=== PATIENT | female | born 1965 | race Caucasian/White ===

== ENCOUNTER 2017-11-08 10:34 | Emergency (ER) | payer OTHER, SELFPAY ==
--- NOTE | 2017-11-08 10:41 | ED.CHESTPAIN ---
HPI - Chest Pain General Chief Complaint: Chest Pain Stated Complaint: SOB/Chest pain Time Seen by Provider: 11/08/17 10:38 Source: patient Mode of arrival: ambulatory Limitations: no limitations History of Present Illness HPI narrative: 52-year-old female here for evaluation of left-sided chest pain. She states she has been having it off and on for the past 2 weeks. She states that she is currently having pain and it started at approximately 0930 this morning when she was at her psychiatrist's office. She states that her psychiatrist asked her to follow up with her primary doctor and her primary doctor asked her to come to the emergency department. She also describes some occasional shortness of breath. She states that the pain is on the left side of her chest. Does have some aching in her back and down her left arm. She states that the pain does not get worse with a deep breath however does get worse with palpation. Does not get worse with movement of her left arm. Had a father who had congestive heart failure and atrial fibrillation and when he was in his 70s. No other immediate family history of early cardiac disease. Related Data Home Medications Medication Instructions Recorded Confirmed Tylenol Extra Strength 2 tabs PO PRN #0 03/21/12 11/08/17 cholecalciferol (vitamin D3) 1,000 unit PO QDAY #0 03/21/12 11/08/17 [Vitamin D3] multivitamin 1 tab PO DAILY #0 03/21/12 11/08/17 fluticasone [Flonase Allergy 1 spray INTRANASAL QDAY #1 bot 01/20/16 11/08/17 Relief] turmeric root extract 1 tab PO DAILY #0 02/24/16 11/08/17 conjugated estrogens [Premarin] 1 applic VAGINAL SEE INSTRUCTIONS 11/08/17 11/08/17 duloxetine 90 mg PO QDAY 11/08/17 11/08/17 armani [id number]-adtklcnk-cauvamihy ac 1 cap PO TID 11/08/17 11/08/17 [Marathon Oil] methylphenidate HCl [Concerta] 54 mg PO QAM 11/08/17 11/08/17 naproxen 500 mg PO BID PRN 11/08/17 11/08/17 propranolol 20 mg PO BID 11/08/17 11/08/17 Previous Rx's Medication Instructions Recorded clonidine HCl 0.2 mg PO HS #60 tab 05/01/17 trazodone 0 mg PO HSP PRN #60 tab 08/21/16 gabapentin 200 mg PO TID #180 cap 09/02/17 Allergies Allergy/AdvReac Type Severity Reaction Status Date / Time topiramate [From Topamax] Allergy Intermediate Swelling Verified 11/08/17 11:23 of the Eye codeine Allergy Unknown NAUSEA/VOMI Verified 11/08/17 11:23 TING morphine AdvReac Severe NAUSEA/SEVERE Verified 11/08/17 11:23 VOMITING ibuprofen AdvReac Unknown EYE Verified 11/08/17 11:23 SWELLING Review of Systems Constitutional Denies fatigue, Denies fever(s), Denies headache(s) and Denies snoring Eyes Denies itchy eyes ENT Ears, Nose, Mouth, and Throat: Denies dizziness and Denies headache(s) Cardiovascular Reports chest pain, Denies chest pain with activity, Denies syncope, Denies edema, Denies leg edema, Denies palpitations, Reports dyspnea and Denies slow heart rate Respiratory Denies cough, Reports dyspnea, Denies snoring, Denies stridor and Denies wheezing Gastrointestinal Gastrointestinal: Denies abdominal pain, Denies constipation, Denies diarrhea, Reports nausea and Denies vomiting Genitourinary Denies dysuria and Denies flank pain Musculoskeletal Denies myalgias and Denies arthralgias Integumentary/Breasts Denies lesions and Denies rash Neurologic Denies dizziness, Denies syncope and Denies headache(s) Endocrine Denies fatigue and Denies palpitations Hematologic/Lymphatic Denies easy bleeding and Denies easy bruising Allergic/Immunologic Denies urticaria, Denies itchy eyes and Denies wheezing [facility] Medical History Fatty liver (Acute) Surgical History Status post hysterectomy Status post knee surgery Family History Child Age: 26 Asthma Mental health problem Father Heart disease Hypertension High cholesterol Mental health problem Grandmother Hypertension Mental health problem Mother Age: 75 Stroke Mental health problem Grandfather Hypertension High cholesterol Grandmother Mental health problem Sister Age: 48 Mental health problem Sister Age: 45 Hypertension High cholesterol Mental health problem Social History Smoking Status: Never smoker Comment: Reviewed patient's past family surgical medical and social history Exam Initial Vital Signs Initial Vital Signs: Vital Signs Temperature 98.5 F 11/08/17 10:56 Pulse Rate 82 11/08/17 10:56 Respiratory Rate 20 11/08/17 10:56 Blood Pressure 135/77 H 11/08/17 10:56 Pulse Oximetry 98 11/08/17 10:56 Const General: cooperative, healthy appearing, comfortable, well developed, well groomed and No acute distress Nutritional Appearance: overweight Orientation: alert, awake and oriented x3 Chest Other: Reproducible symptoms with palpation left-sided anterior chest wall Resp Effort & Inspection: normal respiratory effort Auscultation: clear to auscultation bilaterally Cardio Rate: regular rate Rhythm: regular rhythm Heart Sounds: no murmurs Pulses: radial pulses present GI Inspection: non-distended Palpation: soft, No firm and No tender Skin Lesions: no lesions Rashes: no rashes Neuro General: alert, awake and oriented x3 Cognition: normal cognition Speech: speech normal Motor: muscle tone normal throughout Sensory Exam: no sensory deficits noted Extrem General: normal to inspection and capillary refill normal Psych Appearance: grossly normal and well kempt Scores HEART Score Heart Score history: Slightly Suspicious Heart Score EKG: Non-Specific repolarization disturbance Heart Score Age: 45-64 years old Heart Score risk factors: 1-2 risk factors Heart Score troponin: < or = to normal limit Heart Score Total: 3 Course Orders Ordered: ED Orders 11/08/17 10:42 XR chest 1V Stat EKG-12 Lead Stat 11/08/17 11:00 B Type Natriuretic Peptide Stat Complete Blood Count AUTO DIFF Stat Comprehensive Metabolic Panel Stat Magnesium Stat Partial Thromboplastin Time Stat Phosphorous Stat Prothrombin Time INR Stat Troponin I Stat 11/08/17 14:08 Troponin I Stat Discontinued Medications Aspirin (Aspirin Chew) 324 mg PO NOW ONE Stop: 11/08/17 10:53 Last Admin: 11/08/17 11:03 Dose: 324 mg Vital Signs - 8 hr 11/08/17 10:56 11/08/17 11:19 11/08/17 12:23 Temperature 98.5 F Pulse Rate 82 80 76 Respiratory Rate 20 18 16 Blood Pressure 135/77 H Blood Pressure [Left Arm] 119/75 106/71 Pulse Oximetry 98 100 97 11/08/17 13:22 11/08/17 14:15 Temperature Pulse Rate 77 82 Respiratory Rate 15 20 Blood Pressure Blood Pressure [Left Arm] 126/78 H 103/71 Pulse Oximetry 100 MDM - Chest Pain Lab Data Attestation: I reviewed the patient's lab results. Result diagrams: 11/08/17 11:00 11/08/17 11:00 Lab Results 11/08/17 11/08/17 11/08/17 Range/Units 11:00 11:00 11:00 WBC 5.0 (4.5-11.0) X10^3/uL RBC 5.07 (4.0-5.2) X10^6/uL Hgb 15.4 (12.0-16.0) g/dL Hct 45.5 (36-46) % MCV 89.8 (80-100) fL MCH 30.3 (26-34) PG MCHC 33.8 (30-36) % RDW 13.2 (11.6-14.8) % Plt Count 198 (150-400) X10^3/uL Neut % (Auto) 57.6 (50-75) % Lymph % (Auto) 29.5 (25-40) % Mayes % (Auto) 8.1 (3-14) % Eos % (Auto) 3.5 (2-4) % Baso % (Auto) 1.3 (0-2) % Neut # (Auto) 2900 L (4542-0624) /uL PT 10.8 (10.1-12.7) SECONDS INR 1.0 (0.9-1.3) APTT 27 (26.4-36.2) SECONDS Sodium 141 (137-145) mmol/L Potassium 4.0 (3.4-5.1) mmol/L Chloride 105 (98-107) mmol/L Carbon Dioxide 28 (22-32) mmol/L BUN 14 (7-17) mg/dL Creatinine 0.70 (0.52-1.04) mg/dL Estimated GFR > 60.0 (>60) mL/min BUN/Creatinine Ratio 20.0 (6-22) Glucose 114 H (70-100) mg/dL Calcium 9.3 (8.4-10.2) mg/dL Phosphorus 2.4 L (2.5-4.5) mg/dL Magnesium 2.0 (1.6-2.3) mg/dL Total Bilirubin 0.5 (0.2-1.3) mg/dL AST 24 (14-36) IU/L ALT 28 (9-52) IU/L Alkaline Phosphatase 91 (38-126) U/L Troponin I < 0.012 (0.01-0.034) ng/mL B-Natriuretic Peptide (<100) Total Protein 6.8 (6.3-8.2) g/dL Albumin 4.0 (3.5-5.0) g/dL Globulin 2.8 (1.7-4.1) g/dL Albumin/Globulin Ratio 1.4 (1.0-2.8) 11/08/17 11/08/17 Range/Units 11:00 14:08 WBC (4.5-11.0) X10^3/uL RBC (4.0-5.2) X10^6/uL Hgb (12.0-16.0) g/dL Hct (36-46) % MCV (80-100) fL MCH (26-34) PG MCHC (30-36) % RDW (11.6-14.8) % Plt Count (150-400) X10^3/uL Neut % (Auto) (50-75) % Lymph % (Auto) (25-40) % Mayes % (Auto) (3-14) % Eos % (Auto) (2-4) % Baso % (Auto) (0-2) % Neut # (Auto) (6357-5573) /uL PT (10.1-12.7) SECONDS INR (0.9-1.3) APTT (26.4-36.2) SECONDS Sodium (137-145) mmol/L Potassium (3.4-5.1) mmol/L Chloride (98-107) mmol/L Carbon Dioxide (22-32) mmol/L BUN (7-17) mg/dL Creatinine (0.52-1.04) mg/dL Estimated GFR (>60) mL/min BUN/Creatinine Ratio (6-22) Glucose (70-100) mg/dL Calcium (8.4-10.2) mg/dL Phosphorus (2.5-4.5) mg/dL Magnesium (1.6-2.3) mg/dL Total Bilirubin (0.2-1.3) mg/dL AST (14-36) IU/L ALT (9-52) IU/L Alkaline Phosphatase (38-126) U/L Troponin I < 0.012 (0.01-0.034) ng/mL B-Natriuretic Peptide < 100.0 (<100) Total Protein (6.3-8.2) g/dL Albumin (3.5-5.0) g/dL Globulin (1.7-4.1) g/dL Albumin/Globulin Ratio (1.0-2.8) Imaging Data Chest x-ray: Radiologist's impression: PROCEDURE: XR CHEST 1V INDICATIONS: Chest pain shortness of breath TECHNIQUE: One view of the chest was acquired. COMPARISON: [facility], CT, PE STUDY (CTA CHEST), 11/27/2008, 15:17. [facility], CR, CHEST 1 VIEW, 11/27/2008, 13:59. FINDINGS: Surgical changes and devices: None. Lungs and pleura: No pleural effusions or pneumothorax. Lungs are clear. Mediastinum: Mediastinal contours appear normal. Heart size is normal. Bones and chest wall: No suspicious bony lesions. Age-appropriate bony degenerative changes are seen. Overlying soft tissues appear unremarkable. IMPRESSION: Portable chest within normal limits. Dictated by: Jayden Genao M.D. on 11/08/2017 at 10:19 Approved by: Jayden Genao M.D. on 11/08/2017 at 10:31 ECG Data Attestation: I personally reviewed and interpreted this ECG as follows: Prior ECG tracings: not available for review Interpretation: Sinus rhythm Ventricular rate 81 Normal axis Normal intervals Normal QRS Normal QTC Nonspecific ST T wave changes MDM Narrative Medical decision making narrative: 52-year-old female with reproducible left-sided chest pain. While she was getting her IV placed she had an episode of tachycardia pair on the monitor. It did not appear that the patient was moving at the time. Patient was asymptomatic during the event. The event spontaneously resolved. Initial troponin was negative. Heart score is 3. I discussed the case with Waqar who asked me to talk with our supervisor screen making before we proceeded with any sort of transfer for the unexplained tachycardia event. I did discuss the case with with cardiology at [facility] who evaluated the rhythm strip as stated that the QRS complex did March out and that the other wide complex findings were artifact. This does fit the patient's clinical scenario at the time seeing as how she was asymptomatic. Patient was given an aspirin here in the ER. Repeat troponin greater than 6 hr after the onset of her symptoms and greater than 3 hr after the 1st troponin was negative. Given her low heart score, and the reproducibility of the pain with palpation, the 2-troponins and the nonspecific EKG feel that the patient can follow up as a outpatient. I did discuss this with the patient and family at bedside. They will contact her primary doctor for follow-up. She was given return precautions. They expressed understanding and agreement with plan Discharge Plan Departure Patient Disposition: Home, Self-Care Clinical Impression: Atypical chest pain Instructions: DI for Atypical Chest Pain Activity Restrictions/Additional Instructions: Recommend that you continue with all of your medications as directed. Contact your primary care doctor to discuss the indications for follow on testing to include a stress test. Return to the emergency department for any new or worsening symptoms. Prescriptions: No Action cholecalciferol (vitamin D3) [Vitamin D3] 1,000 unit Tablet 1,000 unit PO QDAY Qty: 0 RF: 0 multivitamin Tablet 1 tab PO DAILY Qty: 0 RF: 0 Tylenol Extra Strength 2 tabs PO PRN Qty: 0 RF: 0 fluticasone [Flonase Allergy Relief] 9.9 ML spray,suspension 1 spray Intranasal QDAY Qty: 1 RF: 0 turmeric root extract 1 tab PO DAILY Qty: 0 RF: 0 clonidine HCl 0.1 MG tablet 0.2 mg PO HS Qty: 60 RF: 0 trazodone 50 MG tablet PO HSP PRNQty: 60 RF: 2 gabapentin 100 mg capsule 200 mg PO TID Qty: 180 RF: 1 methylphenidate HCl [Concerta] 54 mg Tablet Extended Release 24hr 54 mg PO QAM RF: 0 duloxetine 30 MG capsule,delayed release(DR/EC) 90 mg PO QDAY RF: 0 propranolol 20 mg Tablet 20 mg PO BID RF: 0 naproxen 500 MG tablet 500 mg PO BID PRN (Reason: Inflammation) RF: 0 armani [id number] ac [Marathon Oil] 1,000 mg Capsule 1 cap PO TID RF: 0 conjugated estrogens [Premarin] 0.625 MG/GM cream 1 applic Vaginal SEE INSTRUCTIONS RF: 0
[2017-11-08 10:56] VITALS: BP 135/77; PULSE 82; RESP 20; TEMP 36.9; O2SAT 98; BMI 35.9
--- NOTE | 2017-11-08 10:57 | ED_ITS ---
HPI - Chest Pain General Chief Complaint: Chest Pain Stated Complaint: SOB/Chest pain Time Seen by Provider: 11/08/17 10:38 Source: patient Mode of arrival: ambulatory Limitations: no limitations History of Present Illness HPI narrative: 52-year-old female here for evaluation of left-sided chest pain. She states she has been having it off and on for the past 2 weeks. She states that she is currently having pain and it started at approximately 0930 this morning when she was at her psychiatrist's office. She states that her psychiatrist asked her to follow up with her primary doctor and her primary doctor asked her to come to the emergency department. She also describes some occasional shortness of breath. She states that the pain is on the left side of her chest. Does have some aching in her back and down her left arm. She states that the pain does not get worse with a deep breath however does get worse with palpation. Does not get worse with movement of her left arm. Had a father who had congestive heart failure and atrial fibrillation and when he was in his 70s. No other immediate family history of early cardiac disease. Related Data Home Medications Medication Instructions Recorded Confirmed Tylenol Extra Strength 2 tabs PO PRN #0 03/21/12 11/08/17 cholecalciferol (vitamin D3) 1,000 unit PO QDAY #0 03/21/12 11/08/17 [Vitamin D3] multivitamin 1 tab PO DAILY #0 03/21/12 11/08/17 fluticasone [Flonase Allergy 1 spray INTRANASAL QDAY #1 bot 01/20/16 11/08/17 Relief] turmeric root extract 1 tab PO DAILY #0 02/24/16 11/08/17 conjugated estrogens [Premarin] 1 applic VAGINAL SEE INSTRUCTIONS 11/08/1711/08 duloxetine 90 mg PO QDAY 11/08/17 11/08/17 armani agdg-zayccxlk-viledgmwo ac 1 cap PO TID 11/08/17 11/08/17 [[place] Oil] methylphenidate HCl [Concerta] 54 mg PO QAM 11/08/17 11/08/17 naproxen 500 mg PO BID PRN 11/08/17 11/08/17 propranolol 20 mg PO BID 11/08/17 11/08/17 Previous Rx's Medication Instructions Recorded clonidine HCl 0.2 mg PO HS #60 tab 05/01/17 trazodone 0 mg PO HSP PRN #60 tab 08/21/16 gabapentin 200 mg PO TID #180 cap 09/02/17 Allergies Allergy/AdvReac Type Severity Reaction Status Date / Time topiramate [From Topamax] Allergy Intermediate Swelling Verified 11/08/17 11:23 of the Eye codeine Allergy Unknown NAUSEA/VOMI Verified 11/08/17 11:23 TING morphine AdvReac Severe NAUSEA/SEVERE Verified 11/08/17 11:23 VOMITING ibuprofen AdvReac Unknown EYE Verified 11/08/17 11:23 SWELLING Review of Systems Constitutional Denies fatigue, Denies fever(s), Denies headache(s) and Denies snoring Eyes Denies itchy eyes ENT Ears, Nose, Mouth, and Throat: Denies dizziness and Denies headache(s) Cardiovascular Reports chest pain, Denies chest pain with activity, Denies syncope, Denies edema, Denies leg edema, Denies palpitations, Reports dyspnea and Denies slow heart rate Respiratory Denies cough, Reports dyspnea, Denies snoring, Denies stridor and Denies wheezing Gastrointestinal Gastrointestinal: Denies abdominal pain, Denies constipation, Denies diarrhea, Reports nausea and Denies vomiting Genitourinary Denies dysuria and Denies flank pain Musculoskeletal Denies myalgias and Denies arthralgias Integumentary/Breasts Denies lesions and Denies rash Neurologic Denies dizziness, Denies syncope and Denies headache(s) Endocrine Denies fatigue and Denies palpitations Hematologic/Lymphatic Denies easy bleeding and Denies easy bruising Allergic/Immunologic Denies urticaria, Denies itchy eyes and Denies wheezing [facility] Medical History Fatty liver (Acute) Surgical History Status post hysterectomy Status post knee surgery Family History Child Age: 26 Asthma Mental health problem Father Heart disease Hypertension High cholesterol Mental health problem Grandmother Hypertension Mental health problem Mother Age: 75 Stroke Mental health problem Grandfather Hypertension High cholesterol Grandmother Mental health problem Sister Age: 48 Mental health problem Sister Age: 45 Hypertension High cholesterol Mental health problem Social History Smoking Status: Never smoker Comment: Reviewed patient's past family surgical medical and social history Exam Initial Vital Signs Initial Vital Signs: Vital Signs Temperature 98.5 F 11/08/17 10:56 Pulse Rate 82 11/08/17 10:56 Respiratory Rate 20 11/08/17 10:56 Blood Pressure 135/77 H 11/08/17 10:56 Pulse Oximetry 98 11/08/17 10:56 Const General: cooperative, healthy appearing, comfortable, well developed, well groomed and No acute distress Nutritional Appearance: overweight Orientation: alert, awake and oriented x3 Chest Other: Reproducible symptoms with palpation left-sided anterior chest wall Resp Effort & Inspection: normal respiratory effort Auscultation: clear to auscultation bilaterally Cardio Rate: regular rate Rhythm: regular rhythm Heart Sounds: no murmurs Pulses: radial pulses present GI Inspection: non-distended Palpation: soft, No firm and No tender Skin Lesions: no lesions Rashes: no rashes Neuro General: alert, awake and oriented x3 Cognition: normal cognition Speech: speech normal Motor: muscle tone normal throughout Sensory Exam: no sensory deficits noted Extrem General: normal to inspection and capillary refill normal Psych Appearance: grossly normal and well kempt Scores HEART Score Heart Score history: Slightly Suspicious Heart Score EKG: Non-Specific repolarization disturbance Heart Score Age: 45-64 years old Heart Score risk factors: 1-2 risk factors Heart Score troponin: < or = to normal limit Heart Score Total: 3 Course Orders Ordered: ED Orders 11/08/17 10:42 XR chest 1V Stat EKG-12 Lead Stat 11/08/17 11:00 B Type Natriuretic Peptide Stat Complete Blood Count AUTO DIFF Stat Comprehensive Metabolic Panel Stat Magnesium Stat Partial Thromboplastin Time Stat Phosphorous Stat Prothrombin Time INR Stat Troponin I Stat 11/08/17 14:08 Troponin I Stat Discontinued Medications Aspirin (Aspirin Chew) 324 mg PO NOW ONE Stop: 11/08/17 10:53 Last Admin: 11/08/17 11:03 Dose: 324 mg Vital Signs - 8 hr 11/08/17 10:56 11/08/17 11:19 11/08/17 12:23 Temperature 98.5 F Pulse Rate 82 80 76 Respiratory Rate 20 18 16 Blood Pressure 135/77 H Blood Pressure [Left Arm] 119/75 106/71 Pulse Oximetry 98 100 97 11/08/17 13:22 11/08/17 14:15 Temperature Pulse Rate 77 82 Respiratory Rate 15 20 Blood Pressure Blood Pressure [Left Arm] 126/78 H 103/71 Pulse Oximetry 100 MDM - Chest Pain Lab Data Attestation: I reviewed the patient's lab results. Result diagrams: 11/08/17 11:00 11/08/17 11:00 Lab Results 11/08/17 11/08/17 11/08/17 Range/Units 11:00 11:00 11:00 WBC 5.0 (4.5-11.0) X10^3/uL RBC 5.07 (4.0-5.2) X10^6/uL Hgb 15.4 (12.0-16.0) g/dL Hct 45.5 (36-46) % MCV 89.8 (80-100) fL MCH 30.3 (26-34) PG MCHC 33.8 (30-36) % RDW 13.2 (11.6-14.8) % Plt Count 198 (150-400) X10^3/uL Neut % (Auto) 57.6 (50-75) % Lymph % (Auto) 29.5 (25-40) % Mitchell % (Auto) 8.1 (3-14) % Eos % (Auto) 3.5 (2-4) % Baso % (Auto) 1.3 (0-2) % Neut # (Auto) 2900 L (5793-8317) /uL PT 10.8 (10.1-12.7) SECONDS INR 1.0 (0.9-1.3) APTT 27 (26.4-36.2) SECONDS Sodium 141 (137-145) mmol/L Potassium 4.0 (3.4-5.1) mmol/L Chloride 105 (98-107) mmol/L Carbon Dioxide 28 (22-32) mmol/L BUN 14 (7-17) mg/dL Creatinine 0.70 (0.52-1.04) mg/dL Estimated GFR > 60.0 (>60) mL/min BUN/Creatinine Ratio 20.0 (6-22) Glucose 114 H (70-100) mg/dL Calcium 9.3 (8.4-10.2) mg/dL Phosphorus 2.4 L (2.5-4.5) mg/dL Magnesium 2.0 (1.6-2.3) mg/dL Total Bilirubin 0.5 (0.2-1.3) mg/dL AST 24 (14-36) IU/L ALT 28 (9-52) IU/L Alkaline Phosphatase 91 (38-126) U/L Troponin I < 0.012 (0.01-0.034) ng/mL B-Natriuretic Peptide (<100) Total Protein 6.8 (6.3-8.2) g/dL Albumin 4.0 (3.5-5.0) g/dL Globulin 2.8 (1.7-4.1) g/dL Albumin/Globulin Ratio 1.4 (1.0-2.8) 11/08/17 11/08/17 Range/Units 11:00 14:08 WBC (4.5-11.0) X10^3/uL RBC (4.0-5.2) X10^6/uL Hgb (12.0-16.0) g/dL Hct (36-46) % MCV (80-100) fL MCH (26-34) PG MCHC (30-36) % RDW (11.6-14.8) % Plt Count (150-400) X10^3/uL Neut % (Auto) (50-75) % Lymph % (Auto) (25-40) % Mitchell % (Auto) (3-14) % Eos % (Auto) (2-4) % Baso % (Auto) (0-2) % Neut # (Auto) (3556-0027) /uL PT (10.1-12.7) SECONDS INR (0.9-1.3) APTT (26.4-36.2) SECONDS Sodium (137-145) mmol/L Potassium (3.4-5.1) mmol/L Chloride (98-107) mmol/L Carbon Dioxide (22-32) mmol/L BUN (7-17) mg/dL Creatinine (0.52-1.04) mg/dL Estimated GFR (>60) mL/min BUN/Creatinine Ratio (6-22) Glucose (70-100) mg/dL Calcium (8.4-10.2) mg/dL Phosphorus (2.5-4.5) mg/dL Magnesium (1.6-2.3) mg/dL Total Bilirubin (0.2-1.3) mg/dL AST (14-36) IU/L ALT (9-52) IU/L Alkaline Phosphatase (38-126) U/L Troponin I < 0.012 (0.01-0.034) ng/mL B-Natriuretic Peptide < 100.0 (<100) Total Protein (6.3-8.2) g/dL Albumin (3.5-5.0) g/dL Globulin (1.7-4.1) g/dL Albumin/Globulin Ratio (1.0-2.8) Imaging Data Chest x-ray: Radiologist's impression: PROCEDURE: XR CHEST 1V INDICATIONS: Chest pain shortness of breath TECHNIQUE: One view of the chest was acquired. COMPARISON: [facility], CT, PE STUDY (CTA CHEST), 11/27/2008, 15:17. [facility], CR, CHEST 1 VIEW, 11/27/2008, 13:59. FINDINGS: Surgical changes and devices: None. Lungs and pleura: No pleural effusions or pneumothorax. Lungs are clear. Mediastinum: Mediastinal contours appear normal. Heart size is normal. Bones and chest wall: No suspicious bony lesions. Age-appropriate bony degenerative changes are seen. Overlying soft tissues appear unremarkable. IMPRESSION: Portable chest within normal limits. Dictated by: Jayden Genao M.D. on 11/08/2017 at 10:19 Approved by: Jayden Genao M.D. on 11/08/2017 at 10:31 ECG Data Attestation: I personally reviewed and interpreted this ECG as follows: Prior ECG tracings: not available for review Interpretation: Sinus rhythm Ventricular rate 81 Normal axis Normal intervals Normal QRS Normal QTC Nonspecific ST T wave changes MDM Narrative Medical decision making narrative: 52-year-old female with reproducible left- sided chest pain. While she was getting her IV placed she had an episode of tachycardia pair on the monitor. It did not appear that the patient was moving at the time. Patient was asymptomatic during the event. The event spontaneously resolved. Initial troponin was negative. Heart score is 3. I discussed the case with Waqar who asked me to talk with our stars analytical lead before we proceeded with any sort of transfer for the unexplained tachycardia event. I did discuss the case with with cardiology at [facility] who evaluated the rhythm strip as stated that the QRS complex did March out and that the other wide complex findings were artifact. This does fit the patient's clinical scenario at the time seeing as how she was asymptomatic. Patient was given an aspirin here in the ER. Repeat troponin greater than 6 hr after the onset of her symptoms and greater than 3 hr after the 1st troponin was negative. Given her low heart score, and the reproducibility of the pain with palpation, the 2-troponins and the nonspecific EKG feel that the patient can follow up as a outpatient. I did discuss this with the patient and family at bedside. They will contact her primary doctor for follow-up. She was given return precautions. They expressed understanding and agreement with plan Discharge Plan Departure Patient Disposition: Home, Self-Care Clinical Impression: Atypical chest pain Instructions: DI for Atypical Chest Pain Activity Restrictions/Additional Instructions: Recommend that you continue with all of your medications as directed. Contact your primary care doctor to discuss the indications for follow on testing to include a stress test. Return to the emergency department for any new or worsening symptoms. Prescriptions: No Action cholecalciferol (vitamin D3) [Vitamin D3] 1,000 unit Tablet 1,000 unit PO QDAY Qty: 0 RF: 0 multivitamin Tablet 1 tab PO DAILY Qty: 0 RF: 0 Tylenol Extra Strength 2 tabs PO PRN Qty: 0 RF: 0 fluticasone [Flonase Allergy Relief] 9.9 ML spray,suspension 1 spray Intranasal QDAY Qty: 1 RF: 0 turmeric root extract 1 tab PO DAILY Qty: 0 RF: 0 clonidine HCl 0.1 MG tablet 0.2 mg PO HS Qty: 60 RF: 0 trazodone 50 MG tablet PO HSP PRNQty: 60 RF: 2 gabapentin 100 mg capsule 200 mg PO TID Qty: 180 RF: 1 methylphenidate HCl [Concerta] 54 mg Tablet Extended Release 24hr 54 mg PO QAM RF: 0 duloxetine 30 MG capsule,delayed release(DR/EC) 90 mg PO QDAY RF: 0 propranolol 20 mg Tablet 20 mg PO BID RF: 0 naproxen 500 MG tablet 500 mg PO BID PRN (Reason: Inflammation) RF: 0 armani ixqc-znmdjhgt-krmlngbtt ac [[place] Oil] 1,000 mg Capsule 1 cap PO TID RF: 0 conjugated estrogens [Premarin] 0.625 MG/GM cream 1 applic Vaginal SEE INSTRUCTIONS RF: 0
[2017-11-08] MEDS: ASPIRIN 81 MG TAB 324 MG PO (11:03)
--- NOTE | 2017-11-08 11:12 | PC.NURSE ---
pt had run of VFib witnessed on monitor by RN and Dr Starr. Code cart at bedside. Pt alert and oriented at time of arrhythmia.
[2017-11-08 11:19] VITALS: BP 119/75; PULSE 80; RESP 18; O2SAT 100
[2017-11-08 11:26] LABS: Add Manual Diff / Slide Review NO; Basophils Percent Auto 1.3 % (0-2); Eosinophils Percent Auto 3.5 % (2-4); Hematocrit 45.5 % (36-46); Hemoglobin 15.4 g/dL (12.0-16.0); Lymphocytes Percent Auto 29.5 % (25-40); Mean Corpuscular HGB Conc 33.8 % (30-36); Mean Corpuscular Hemoglobin 30.3 PG (26-34); Mean Corpuscular Volume 89.8 fL (80-100); Monocytes Percent Auto 8.1 % (3-14); Neutrophils Absolute Auto 2900 /uL (3000-5900); Neutrophils Percent Auto 57.6 % (50-75); Platelet Count 198 X10^3/uL (150-400); Red Blood Cell Count 5.07 X10^6/uL (4.0-5.2); Red Cell Distribution Width 13.2 % (11.6-14.8)
[2017-11-08 11:35] LABS: Prothrombin Time 10.8 SECONDS (10.1-12.7)
[2017-11-08 11:37] LABS: PTT Partial Thromboplastin Tim 27 SECONDS (26.4-36.2)
[2017-11-08 11:40] LABS: Alanine Aminotransferase 28 IU/L (9-52); Albumin Globulin Ratio 1.4 (1.0-2.8); Alkaline Phosphatase 91 U/L (38-126); Aspartate Aminotransferase 24 IU/L (14-36); Bilirubin Total 0.5 mg/dL (0.2-1.3); Blood Urea Nitrogen 14 mg/dL (7-17); Calcium 9.3 mg/dL (8.4-10.2); Carbon Dioxide 28 mmol/L (22-32); Chloride 105 mmol/L (98-107); Estimated Glomerular Filt Rate > 60.0 mL/min (>60); Globulin 2.8 g/dL (1.7-4.1); Glucose 114 mg/dL (70-100); HEMOLYSIS < 15 (0-50); Phosphorous 2.4 mg/dL (2.5-4.5); Sodium 141 mmol/L (137-145); Total Protein 6.8 g/dL (6.3-8.2)
[2017-11-08 11:53] LABS: Troponin I < 0.012 ng/mL (0.01-0.034)
[2017-11-08 12:01] LABS: B Type Natriuretic Peptide < 100.0 (<100)
[2017-11-08 12:23] VITALS: BP 106/71; PULSE 76; RESP 16; O2SAT 97
[2017-11-08 13:22] VITALS: BP 126/78; PULSE 77; RESP 15; O2SAT 100
[2017-11-08 14:15] VITALS: BP 103/71; PULSE 82; RESP 20
[2017-11-08 14:43] LABS: Troponin I < 0.012 ng/mL (0.01-0.034)
[2017-11-08 15:07] VITALS: BP 120/77; PULSE 66; RESP 17; O2SAT 99
== END 2017-11-08 15:07 | disposition home or self-care (01) ==
PROVIDERS: Emergency Provider Emergency Medicine; PCP Internal Medicine
DX: R07.89 Other chest pain (principal)
CPT/HCPCS: 36415; 36591; 71045; 80053; 83735; 83880; 84100; 84484; 85025; 85610; 85730; 93005; 93010; 99283; 99285

== ENCOUNTER → 2017-11-30 13:48 | Outpatient (CLI) | payer OTHER, SELFPAY ==
--- NOTE | 2017-11-30 14:54 | PM.TREADMILL ---
Cardiac Stress Test Report Referral & Results Date Patient Seen: 11/30/17 Time Patient Seen: 14:54 Requesting provider: Domenica Tovar Indication: Chest pain Rest ECG: Unremarkable Procedure Note: Today following both written and verbal informed consent, the patient was exercised according to a standard [facility] protocol. The patient exercised for a total of 6 min 2 sec achieving a maximum heart rate of 180. Patient's maximum systolic blood pressure was 160. This was an estimated 7.0 MET's. There are no ST-T segment changes identified Normal heart rate and blood pressure response to exercise Functional aerobic impairment rated about 10% on the sedentary scale Impression: No evidence of ischemia. Patient did experience some chest and left arm discomfort but absolutely no changes on ECG Average exercise capacity Clinical correlation suggested Please note: Actual ECG tracings can be found in the PACS system.
== END ==
PROVIDERS: PCP Internal Medicine; Visit Provider Internal Medicine
DX: R07.89 Other chest pain (principal)
CPT/HCPCS: 93016; 93017; 93018

== ENCOUNTER → 2018-08-13 14:04 | Outpatient (CLI) | payer OTHER, SELFPAY ==
--- NOTE | 2018-08-13 14:13 | DI.RAD.S_ITS ---
PROCEDURE: XR CHEST 1V INDICATIONS: upper back pain TECHNIQUE: One view of the chest was acquired. COMPARISON: [facility], , XR CHEST 1V, 11/08/2017, 11:01. [facility], , CHEST 1 VIEW, 11/27/2008, 13:59. [facility], , CHEST 2 VIEW, 06/18/2007, 12:55. FINDINGS: Surgical changes and devices: None. Lungs and pleura: Lungs are clear. No pleural effusions or pneumothorax. Mediastinum: Mediastinal contours appear normal. Heart size is normal. Bones and chest wall: No suspicious bony lesions. Overlying soft tissues appear unremarkable. IMPRESSION: No acute cardiopulmonary disease. Dictated by: Alfredito Garcia M.D. on 08/14/2018 at 9:00 Approved by: Alfredito Garcia M.D. on 08/14/2018 at 9:19
== END ==
PROVIDERS: PCP Internal Medicine; Visit Provider Physician Assistant
DX: M54.6 Pain in thoracic spine (principal)
CPT/HCPCS: 36415; 71045; 82550; 84484; 85379

== ENCOUNTER → 2018-08-13 14:45 | Outpatient (REF) | payer OTHER, SELFPAY ==
[2018-08-13 15:14] LABS: Creatine Kinase 89 U/L (30-135)
[2018-08-13 15:27] LABS: Troponin I < 0.012 ng/mL (0.01-0.034)
[2018-08-13 15:32] LABS: D Dimer < 200 ng/mL (<230)
== END ==
LOC: LAB 14:45
PROVIDERS: PCP Internal Medicine; Visit Provider Physician Assistant
DX: M54.9 Dorsalgia, unspecified (principal)
CPT/HCPCS: 36415; 82550; 84484; 85379

== ENCOUNTER 2018-08-18 05:13 | Emergency (ER) | payer OTHER, SELFPAY ==
[2018-08-18 05:30] VITALS: BP 122/105; PULSE 88; RESP 20; TEMP 36.5; O2SAT 100; BMI 35.9
--- NOTE | 2018-08-18 05:42 | ED.NECK ---
HPI - Neck Pain/Injury General Chief Complaint: Neck Pain/Injury Stated Complaint: pinched nerve in neck pain down left arm Time Seen by Provider: 08/18/18 05:37 Source: patient Mode of arrival: ambulatory Limitations: no limitations History of Present Illness HPI Narrative: Patient is a 53-year-old female who presents with left arm pain and numbness and tingling. She says she woke up 2 weeks ago felt a kink in her neck. This is progressively been getting worse. She has been to a chiropractor she had acupuncture she has a 10s unit at home. She says none of it is working. She was given Robaxin to help with nerve pain however overall not getting any better and today it is even worse. No chest pain no shortness of breath no weakness no headache. she says it is worse with movement. 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 However it is quite painful. She initially had numbness and tingling just at her pinky finger however she says now it is her whole hand MD complaint: neck pain Onset (ago): week(s) (2) Quality: burning Duration: constant Relieving factors: none Exacerbating factors: movement of extremity and movement of neck Related Data Home Medications Medication Instructions Recorded Confirmed Tylenol Extra Strength 2 tabs PO PRN #0 03/21/12 08/13/18 cholecalciferol (vitamin D3) 1,000 unit PO QDAY #0 03/21/12 08/13/18 [Vitamin D3] multivitamin 1 tab PO DAILY #0 03/21/12 08/13/18 fluticasone propionate [Flonase 1 spray INTRANASAL QDAY #1 bot 01/20/16 08/13/18 Allergy Relief] turmeric root extract 1 tab PO DAILY #0 02/24/16 08/13/18 conjugated estrogens [Premarin] 1 applic VAGINAL SEE INSTRUCTIONS 11/08/17 08/13/18 duloxetine 90 mg PO QDAY 11/08/17 08/13/18 armani fsjb-irxoixop-rjdbdcxja ac 1 cap PO TID 11/08/17 08/13/18 [[place] Oil] methylphenidate HCl [Concerta] 54 mg PO QAM 11/08/17 08/13/18 naproxen 500 mg PO BID PRN 11/08/17 08/13/18 propranolol 20 mg PO BID 11/08/17 08/13/18 Previous Rx's Medication Instructions Recorded clonidine HCl 0.2 mg PO HS #60 tab 08/10/16 trazodone 0 mg PO HSP PRN #60 tab 08/21/16 gabapentin 200 mg PO TID #180 cap 09/02/17 methocarbamol 500 mg tablet 500 mg PO QID PRN #10 tab 08/14/18 cyclobenzaprine 5 mg PO TID PRN #10 tab 08/18/18 Allergies Allergy/AdvReac Type Severity Reaction Status Date / Time topiramate [From Topamax] Allergy Intermediate Swelling Verified 08/13/18 12:52 of the Eye codeine Allergy Unknown NAUSEA/VOMI Verified 08/13/18 12:52 TING morphine AdvReac Severe NAUSEA/SEVERE Verified 08/13/18 12:52 VOMITING ibuprofen AdvReac Unknown EYE Verified 08/13/18 12:52 SWELLING Review of Systems Review of Systems ROS Unobtainable: All systems reviewed & are unremarkable except as noted in HPI and below Constitutional Denies chills, Denies fever(s), Denies lethargy and Denies weakness Eyes Denies change in vision, Denies eye discharge, Denies irritation and Denies loss of vision ENT Ears, Nose, Mouth, and Throat: Reports neck pain Cardiovascular Denies chest pain, Denies irregular heart rhythm, Denies lightheadedness, Denies palpitations, Denies dyspnea, Denies dyspnea on exertion and Denies orthopnea Respiratory Denies cough, Denies dyspnea, Denies dyspnea on exertion and Denies wheezing Gastrointestinal Gastrointestinal: Denies abdominal pain, Denies change in bowel habits, Denies diarrhea, Denies nausea and Denies vomiting Genitourinary Denies hematuria, Denies flank pain, Denies urinary incontinence and Denies urinary urgency Musculoskeletal Reports as per HPI and Reports neck pain Integumentary/Breasts Denies pruritus, Denies erythema, Denies rash and Denies wounds Neurologic Denies loss of vision and Denies weakness Endocrine Denies palpitations Allergic/Immunologic Denies wheezing [facility] Medical History Fatty liver (Acute) Surgical History Status post hysterectomy Status post knee surgery Family History Child Age: 26 Asthma Mental health problem Father Heart disease Hypertension High cholesterol Mental health problem Grandmother Hypertension Mental health problem Mother Age: 76 Stroke Mental health problem Grandfather Hypertension High cholesterol Grandmother Mental health problem Sister Age: 49 Mental health problem Sister Age: 45 Hypertension High cholesterol Mental health problem Social History Smoking Status: Never smoker Family History Child Age: 26 Asthma Mental health problem Father Heart disease Hypertension High cholesterol Mental health problem Grandmother Hypertension Mental health problem Mother Age: 76 Stroke Mental health problem Grandfather Hypertension High cholesterol Grandmother Mental health problem Sister Age: 49 Mental health problem Sister Age: 45 Hypertension High cholesterol Mental health problem Social History Smoking Status: Never smoker Exam Initial Vital Signs Initial Vital Signs: Vital Signs Temperature 97.7 F 08/18/18 05:30 Pulse Rate 88 08/18/18 05:30 Respiratory Rate 20 08/18/18 05:30 Blood Pressure 122/105 H 08/18/18 05:30 Pulse Oximetry 100 08/18/18 05:30 GENERAL: Patient does appear uncomfortable and in pain and in no acute distress. HEENT: Head atraumatic,EOMI, pupils reactive, face symmetric NECK: No vertebral tenderness left lateral pain muscle spasm felt. Pain is reproducible with palpation and movement. CARDIOVASCULAR: Regular rate and rhythm without murmurs, rubs or gallops. RESPIRATORY: Breath sounds equal bilaterally, no wheezes rales or rhonchi. ABDOMEN: Soft, nontender. Normoactive bowel sounds all 4 quadrants. No guarding or rebound. EXTREMITIES: Normal range of motion, no clubbing or edema. Neurovascularly intact NEUROLOGICAL: Alert and oriented x4.Normal gait and speech. Cranial nerves II through XII grossly intact. quality liaison strength equal bilaterally able to push and pull. Good khjcif-[id number] bilaterally SKIN: Warm, dry, no laceration, no petechiae, no rashes or lesions. Course Orders Ordered: Discontinued Medications Hydromorphone HCl (Dilaudid) 1 mg SUBCUT Q4H PRN PRN Reason: Pain, Severe (7-10) Hydromorphone HCl (Dilaudid) 1 mg SUBCUT NOW ONE Stop: 08/18/18 06:04 Last Admin: 08/18/18 06:04 Dose: 1 mg Vital Signs - 8 hr 08/18/18 05:30 Temperature 97.7 F Pulse Rate 88 Respiratory Rate 20 Blood Pressure 122/105 H Pulse Oximetry 100 MDM - Neck Pain/Injury MDM Narrative Medical decision making narrative: The patient does actually have reproducible pain to palpation. Feels like muscle spasm. I was able to get it to release some. She overall is feeling better. At this time I do not think she needs any imaging. Discharge Plan Departure Patient Disposition: Home Clinical Impression: Muscle spasm Discharge Date/Time: 08/18/18 07:11 Interventions: ED Discharge Assessment Last Done: 08/18/18 07:11 Instructions: DI for Torticollis, DI for Muscle Spasm Activity Restrictions/Additional Instructions: *You have been diagnosed with muscle spasm of the neck *What to do: Increased movement as tolerated, heating pad *Continue to take medications as directed Flexeril 5 mg every 8 hours as needed for muscle spasm--sent to [facility] *Follow up with your primary care provider in 2-3 days *Return to ER if you should have increasing weakness, increasing or any new, worsening or concerning symptoms Prescriptions: New cyclobenzaprine 5 mg tablet 5 mg PO TID PRN (Reason: muscle spasm) Qty: 10 RF: 0 No Action cholecalciferol (vitamin D3) [Vitamin D3] 1,000 unit Tablet 1,000 unit PO QDAY Qty: 0 RF: 0 multivitamin Tablet 1 tab PO DAILY Qty: 0 RF: 0 Tylenol Extra Strength 2 tabs PO PRN Qty: 0 RF: 0 fluticasone propionate [Flonase Allergy Relief] 9.9 ML spray,suspension 1 spray Intranasal QDAY Qty: 1 RF: 0 turmeric root extract 1 tab PO DAILY Qty: 0 RF: 0 clonidine HCl 0.1 MG tablet 0.2 mg PO HS Qty: 60 RF: 0 trazodone 50 MG tablet PO HSP PRNQty: 60 RF: 2 gabapentin 100 mg capsule 200 mg PO TID Qty: 180 RF: 1 methocarbamol 500 mg tablet 500 mg PO QID PRN (Reason: muscle spasm) Qty: 10 RF: 0 methylphenidate HCl [Concerta] 54 mg Tablet Extended Release 24hr 54 mg PO QAM RF: 0 duloxetine 30 MG capsule,delayed release(DR/EC) 90 mg PO QDAY RF: 0 propranolol 20 mg Tablet 20 mg PO BID RF: 0 naproxen 500 MG tablet 500 mg PO BID PRN (Reason: Inflammation) RF: 0 armani yrnr-sfbwvhzt-whdwlbzsv ac [[place] Oil] 1,000 mg Capsule 1 cap PO TID RF: 0 conjugated estrogens [Premarin] 0.625 MG/GM cream 1 applic Vaginal SEE INSTRUCTIONS RF: 0 Referrals: Domenica Tovar ARNP [Primary Care Provider] - Stand Alone Forms: Work Release Note
--- NOTE | 2018-08-18 06:02 | ED_ITS ---
HPI - Neck Pain/Injury General Chief Complaint: Neck Pain/Injury Stated Complaint: pinched nerve in neck pain down left arm Time Seen by Provider: 08/18/18 05:37 Source: patient Mode of arrival: ambulatory Limitations: no limitations History of Present Illness HPI Narrative: Patient is a 53-year-old female who presents with left arm pain and numbness and tingling. She says she woke up 2 weeks ago felt a kink in her neck. This is progressively been getting worse. She has been to a chiropractor she had acupuncture she has a 10s unit at home. She says none of it is working. She was given Robaxin to help with nerve pain however overall not getting any better and today it is even worse. No chest pain no shortness of breath no weakness no headache. she says it is worse with movement. 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 However it is quite painful. She initially had numbness and tingling just at her pinky finger however she says now it is her whole hand MD complaint: neck pain Onset (ago): week(s) (2) Quality: burning Duration: constant Relieving factors: none Exacerbating factors: movement of extremity and movement of neck Related Data Home Medications Medication Instructions Recorded Confirmed Tylenol Extra Strength 2 tabs PO PRN #0 03/21/12 08/13/18 cholecalciferol (vitamin D3) 1,000 unit PO QDAY #0 03/21/12 08/13/18 [Vitamin D3] multivitamin 1 tab PO DAILY #0 03/21/12 08/13/18 fluticasone propionate [Flonase 1 spray INTRANASAL QDAY #1 bot 01/20/16 08/13/18 Allergy Relief] turmeric root extract 1 tab PO DAILY #0 02/24/16 08/13/18 conjugated estrogens [Premarin] 1 applic VAGINAL SEE INSTRUCTIONS 11/08/17 08/13/18 duloxetine 90 mg PO QDAY 11/08/17 08/13/18 armani mvfl-bcfwoeih-jtghdtxqn ac 1 cap PO TID 11/08/17 08/13/18 [[place] Oil] methylphenidate HCl [Concerta] 54 mg PO QAM 11/08/17 08/13/18 naproxen 500 mg PO BID PRN 11/08/17 08/13/18 propranolol 20 mg PO BID 11/08/17 08/13/18 Previous Rx's Medication Instructions Recorded clonidine HCl 0.2 mg PO HS #60 tab 08/10/16 trazodone 0 mg PO HSP PRN #60 tab 08/21/16 gabapentin 200 mg PO TID #180 cap 09/02/17 methocarbamol 500 mg tablet 500 mg PO QID PRN #10 tab 08/14/18 cyclobenzaprine 5 mg PO TID PRN #10 tab 08/18/18 Allergies Allergy/AdvReac Type Severity Reaction Status Date / Time topiramate [From Topamax] Allergy Intermediate Swelling Verified 08/13/18 12:52 of the Eye codeine Allergy Unknown NAUSEA/VOMI Verified 08/13/18 12:52 TING morphine AdvReac Severe NAUSEA/SEVERE Verified 08/13/18 12:52 VOMITING ibuprofen AdvReac Unknown EYE Verified 08/13/18 12:52 SWELLING Review of Systems Review of Systems ROS Unobtainable: All systems reviewed & are unremarkable except as noted in HPI and below Constitutional Denies chills, Denies fever(s), Denies lethargy and Denies weakness Eyes Denies change in vision, Denies eye discharge, Denies irritation and Denies loss of vision ENT Ears, Nose, Mouth, and Throat: Reports neck pain Cardiovascular Denies chest pain, Denies irregular heart rhythm, Denies lightheadedness, Denies palpitations, Denies dyspnea, Denies dyspnea on exertion and Denies orthopnea Respiratory Denies cough, Denies dyspnea, Denies dyspnea on exertion and Denies wheezing Gastrointestinal Gastrointestinal: Denies abdominal pain, Denies change in bowel habits, Denies diarrhea, Denies nausea and Denies vomiting Genitourinary Denies hematuria, Denies flank pain, Denies urinary incontinence and Denies urinary urgency Musculoskeletal Reports as per HPI and Reports neck pain Integumentary/Breasts Denies pruritus, Denies erythema, Denies rash and Denies wounds Neurologic Denies loss of vision and Denies weakness Endocrine Denies palpitations Allergic/Immunologic Denies wheezing [facility] Medical History Fatty liver (Acute) Surgical History Status post hysterectomy Status post knee surgery Family History Child Age: 26 Asthma Mental health problem Father Heart disease Hypertension High cholesterol Mental health problem Grandmother Hypertension Mental health problem Mother Age: 76 Stroke Mental health problem Grandfather Hypertension High cholesterol Grandmother Mental health problem Sister Age: 49 Mental health problem Sister Age: 45 Hypertension High cholesterol Mental health problem Social History Smoking Status: Never smoker Family History Child Age: 26 Asthma Mental health problem Father Heart disease Hypertension High cholesterol Mental health problem Grandmother Hypertension Mental health problem Mother Age: 76 Stroke Mental health problem Grandfather Hypertension High cholesterol Grandmother Mental health problem Sister Age: 49 Mental health problem Sister Age: 45 Hypertension High cholesterol Mental health problem Social History Smoking Status: Never smoker Exam Initial Vital Signs Initial Vital Signs: Vital Signs Temperature 97.7 F 08/18/18 05:30 Pulse Rate 88 08/18/18 05:30 Respiratory Rate 20 08/18/18 05:30 Blood Pressure 122/105 H 08/18/18 05:30 Pulse Oximetry 100 08/18/18 05:30 GENERAL: Patient does appear uncomfortable and in pain and in no acute distress. HEENT: Head atraumatic,EOMI, pupils reactive, face symmetric NECK: No vertebral tenderness left lateral pain muscle spasm felt. Pain is reproducible with palpation and movement. CARDIOVASCULAR: Regular rate and rhythm without murmurs, rubs or gallops. RESPIRATORY: Breath sounds equal bilaterally, no wheezes rales or rhonchi. ABDOMEN: Soft, nontender. Normoactive bowel sounds all 4 quadrants. No guard ing or rebound. EXTREMITIES: Normal range of motion, no clubbing or edema. Neurovascularly intact NEUROLOGICAL: Alert and oriented x4.Normal gait and speech. Cranial nerves II through XII grossly intact. 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 Good [id number] bilaterally SKIN: Warm, dry, no laceration, no petechiae, no rashes or lesions. Course Orders Ordered: Discontinued Medications Hydromorphone HCl (Dilaudid) 1 mg SUBCUT Q4H PRN PRN Reason: Pain, Severe (7-10) Hydromorphone HCl (Dilaudid) 1 mg SUBCUT NOW ONE Stop: 08/18/18 06:04 Last Admin: 08/18/18 06:04 Dose: 1 mg Vital Signs - 8 hr 08/18/18 05:30 Temperature 97.7 F Pulse Rate 88 Respiratory Rate 20 Blood Pressure 122/105 H Pulse Oximetry 100 MDM - Neck Pain/Injury MDM Narrative Medical decision making narrative: The patient does actually have reproducible pain to palpation. Feels like muscle spasm. I was able to get it to release some. She overall is feeling better. At this time I do not think she needs any imaging. Discharge Plan Departure Patient Disposition: Home Clinical Impression: Muscle spasm Discharge Date/Time: 08/18/18 07:11 Interventions: ED Discharge Assessment Last Done: 08/18/18 07:11 Instructions: DI for Torticollis, DI for Muscle Spasm Activity Restrictions/Additional Instructions: *You have been diagnosed with muscle spasm of the neck *What to do: Increased movement as tolerated, heating pad *Continue to take medications as directed Flexeril 5 mg every 8 hours as needed for muscle spasm--sent to [facility] *Follow up with your primary care provider in 2-3 days *Return to ER if you should have increasing weakness, increasing or any new, worsening or concerning symptoms Prescriptions: New cyclobenzaprine 5 mg tablet 5 mg PO TID PRN (Reason: muscle spasm) Qty: 10 RF: 0 No Action cholecalciferol (vitamin D3) [Vitamin D3] 1,000 unit Tablet 1,000 unit PO QDAY Qty: 0 RF: 0 multivitamin Tablet 1 tab PO DAILY Qty: 0 RF: 0 Tylenol Extra Strength 2 tabs PO PRN Qty: 0 RF: 0 fluticasone propionate [Flonase Allergy Relief] 9.9 ML spray,suspension 1 spray Intranasal QDAY Qty: 1 RF: 0 turmeric root extract 1 tab PO DAILY Qty: 0 RF: 0 clonidine HCl 0.1 MG tablet 0.2 mg PO HS Qty: 60 RF: 0 trazodone 50 MG tablet PO HSP PRNQty: 60 RF: 2 gabapentin 100 mg capsule 200 mg PO TID Qty: 180 RF: 1 methocarbamol 500 mg tablet 500 mg PO QID PRN (Reason: muscle spasm) Qty: 10 RF: 0 methylphenidate HCl [Concerta] 54 mg Tablet Extended Release 24hr 54 mg PO QAM RF: 0 duloxetine 30 MG capsule,delayed release(DR/EC) 90 mg PO QDAY RF: 0 propranolol 20 mg Tablet 20 mg PO BID RF: 0 naproxen 500 MG tablet 500 mg PO BID PRN (Reason: Inflammation) RF: 0 armani lhxl-ctbhedod-maykkxqjb ac [[place] Oil] 1,000 mg Capsule 1 cap PO TID RF: 0 conjugated estrogens [Premarin] 0.625 MG/GM cream 1 applic Vaginal SEE INSTRUCTIONS RF: 0 Referrals: Domenica Tovar ARNP [Primary Care Provider] - Stand Alone Forms: Work Release Note
[2018-08-18] MEDS: HYDROMORPHONE 1 MG INJ SUBCUT (06:04)
[2018-08-18 06:07] VITALS: BP 145/82; PULSE 79; TEMP 36.1; O2SAT 97
[2018-08-18 07:07] VITALS: BP 123/74; PULSE 75
== END 2018-08-18 07:11 | disposition home or self-care (01) ==
LOC: ED 06:52
PROVIDERS: Emergency Provider Emergency Medicine; PCP Internal Medicine
DX: M62.838 Other muscle spasm (principal); R20.0 Anesthesia of skin; M54.2 Cervicalgia; M79.602 Pain in left arm
CPT/HCPCS: 96372; 99283; J1170

== ENCOUNTER 2019-12-04 12:24 | Emergency (ER) | payer OTHER, SELFPAY ==
[2019-12-04 12:27] VITALS: BP 133/75; PULSE 82; RESP 18; TEMP 36.6; O2SAT 100; BMI 35.9
[2019-12-04 15:03] VITALS: BP 123/73; PULSE 74; RESP 14; O2SAT 98
[2019-12-04 15:05] VITALS: PULSE 77; O2SAT 98
[2019-12-04 15:30] VITALS: BP 116/65; PULSE 83; O2SAT 98
[2019-12-04 16:00] VITALS: BP 114/66; PULSE 78; O2SAT 99
[2019-12-04] MEDS: ACETAMINOPHEN 325 MG TABLET 650 MG PO (16:20)
[2019-12-04] MEDS: CYCLOBENZAPRINE 10 MG TABLET PO (16:21)
[2019-12-04] MEDS: predniSONE 20 MG TABLET 40 MG PO (16:21)
[2019-12-04] MEDS: LIDOCAINE PATCH 1 EACH ADH..PATCH TOP (16:22)
--- NOTE | 2019-12-04 16:38 | ED_ITS ---
HPI - Extremity Problem <KATIUSKA Clarke - Last Filed: 12/05/19 02:39> General Chief complaint: Extremity Problem,Nontraumatic Stated complaint: LEFT ARM PAIN,LOSING FEELING Time Seen by Provider: 12/04/19 15:42 Source: patient Mode of arrival: Ambulatory Limitations: no limitations History of Present Illness HPI Narrative: This is a 54-year-old female nonsmoker, who has history of cervical spinal stenosis and bone spurs per MRI test in the past (patient's report) presents to ED with left arm increasing pain below elbow, numbness to left ring and little finger and swelling to dorsal aspect of metacarpal of long finger. Patient was seen by Dr. Virk 1 year ago and had injection done on cervical spine which improved her symptoms and now she is recurring 2 months ago but worsening last 1 month. 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 She also reports worsening lower extremity neuropathy as well. Right dominant hand. She has taking Aleve 2 tabs last night for discomfort. She denies fever, chills, nausea or vomiting or rash. Patient also states urinary urgency, stress incontinence, frequency last 1 month. Related Data Home Medications Medication Instructions Recorded Confirmed Tylenol Extra Strength 2 tabs PO PRN #0 03/21/12 08/13/18 cholecalciferol (vitamin D3) 1,000 unit PO QDAY #0 03/21/12 08/13/18 [Vitamin D3] multivitamin 1 tab PO DAILY #0 03/21/12 08/13/18 fluticasone propionate [Flonase 1 spray INTRANASAL QDAY #1 bot 01/20/16 08/13/18 Allergy Relief] turmeric root extract 1 tab PO DAILY #0 02/24/16 08/13/18 conjugated estrogens [Premarin] 1 applic VAGINAL SEE INSTRUCTIONS 11/08/17 08/13/18 duloxetine 90 mg PO QDAY 11/08/17 08/13/18 armani rlal-dspvaxzz-hfgavdner ac 1 cap PO TID 11/08/17 08/13/18 [[place] [employer]] methylphenidate HCl [Concerta] 54 mg PO QAM 11/08/17 08/13/18 naproxen 500 mg PO BID PRN 11/08/17 08/13/18 propranolol 20 mg PO BID 11/08/17 08/13/18 Previous Rx's Medication Instructions Recorded clonidine HCl 0.2 mg PO HS #60 tab 08/10/16 trazodone 0 mg PO HSP PRN #60 tab 08/21/16 gabapentin 200 mg PO TID #180 cap 09/02/17 methocarbamol 500 mg tablet 500 mg PO QID PRN #10 tab 08/14/18 cyclobenzaprine 5 mg PO TID PRN #10 tab 08/18/18 cyclobenzaprine 10 mg PO BID PRN #10 tab 12/04/19 lidocaine 1 patch TOP DAILY #30 each 12/04/19 prednisone 40 mg PO DAILY 4 Days #8 tab 12/04/19 Allergies Allergy/AdvReac Type Severity Reaction Status Date / Time topiramate [From Topamax] Allergy Intermediate Swelling Verified 08/13/18 12:52 of the Eye codeine Allergy Unknown NAUSEA/VOMI Verified 08/13/18 12:52 TING morphine AdvReac Severe NAUSEA/SEVERE Verified 08/13/18 12:52 VOMITING ibuprofen AdvReac Unknown EYE Verified 08/13/18 12:52 SWELLING Review of Systems <KATIUSKA Clarke - Last Filed: 12/05/19 02:39> Review of Systems Narrative: General: Denies fever, chills, fatigue, malaise, sweats. HEENT: Denies sinus pain, ear pain, sore throat, difficulty swallowing, d izziness. Respiratory: Denies dyspnea, cough, wheezing, hemoptysis, sputum. Cardiovascular: Denies chest pain, palpitations, orthopnea, edema. Gastrointestinal: Denies nausea, vomiting, abdominal pain, diarrhea, constipation, melena. : Denies dysuria, frequency, incontinence, hematuria, urinary retention. Musculoskeletal: See HPI Skin: Denies rash, skin lesions, or other. Neurologic: See HPI Psychiatric: No concerning psychosocial issues. 12-point review of systems is negative except for those stated above. Patient History <KATIUSKA Clarke - Last Filed: 12/05/19 02:39> Medical History Cervical stenosis of spine (Acute) Fatty liver (Acute) Surgical History Status post hysterectomy Status post knee surgery Family History Child Age: 28 Asthma Mental health problem Father Heart disease Hypertension High cholesterol Mental health problem Grandmother Hypertension Mental health problem Mother Age: 77 Stroke Mental health problem Grandfather Hypertension High cholesterol Grandmother Mental health problem Sister Age: 50 Mental health problem Sister Age: 47 Hypertension High cholesterol Mental health problem Social History Smoking Status: Never smoker Smoking Status: Never smoker alcohol intake frequency: 0-2 drinks per day Substance Use Type: does not use Exam <KATIUSKA Clarke - Last Filed: 12/05/19 02:39> Narrative Exam Narrative: GEN: Alert, oriented x 3, well appearing and nourished, and in no acute distress. Head: Normal cephalic, atraumatic. No scalp or temporal tenderness, palpable mass or rash. EYES: Pupils are equal, round, and reactive to light and accommodation. Extraocular muscles are intact bilaterally. There is no subconjunctival hem orrhage, exudate and sclera non-icteric. ENT: Bilateral auditory canals and tympanic membranes clear. Hearing grossly intact. Nose without bleeding, purulent discharge or deviation. Facial sinuses nontender to palpate. Mucous membrane moist, no mucosal lesion. Throat without erythema, tonsillar hypertrophy or exudate. Uvula in midline, airway patent. Neck: Trachea in midline. No JVD, non-tender without lymphadenopathy. No masses or thyroid megaly. Supple, non-tender and no meningeal signs. CARDIAC: Normal regular rate and rhythm without murmurs, gallops, or rubs. No chest wall tenderness. No peripheral edema, cyanosis or pallor. Capillary refill is less than 2 seconds. RESPIRATORY: Lungs are clear to auscultate bilaterally. No cough, wheezes, rales, or rhonchi. No stridor, respiratory distress, increase work of breathing, or accessary muscle used. ABD: Abdomen soft, nontender and non-distended. No guarding or rebound tenderness to palpate. Bowel sounds are normal in all 4 quadrants. There is no palpable masses or organomegaly. EXT: Full painless ROM of all extremities with gross loss of sensation, strength, effusion or edema. SKIN: Warm, dry, normal color for patient. No erythema, lesions or rash over visible areas. BACK: Tenderness to palpate in left shoulder without deformity or crepitance. No flank tenderness. NEUROLOGICAL: Alert and oriented to place, time and person. Sensation and motor function intact bilaterally. No facial droops, dysphasia. PSYCHIATRIC: Good judgement and reason, without hallucinations, abnormal affect or abnormal behaviors during the examination. Patient is not suicidal. Initial Vital Signs Initial Vital Signs: Vital Signs Temperature 97.8 F 12/04/19 12:27 Pulse Rate 82 12/04/19 12:27 Respiratory Rate 18 12/04/19 12:27 Blood Pressure 133/75 12/04/19 12:27 Pulse Oximetry 100 12/04/19 12:27 <Alena Case MD - Last Filed: 12/05/19 18:54> Initial Vital Signs Initial Vital Signs: Vital Signs Temperature 97.8 F 12/04/19 12:27 Pulse Rate 82 12/04/19 12:27 Respiratory Rate 18 12/04/19 12:27 Blood Pressure 133/75 12/04/19 12:27 Pulse Oximetry 100 12/04/19 12:27 Scores <KATUISKA Clarke - Last Filed: 12/05/19 02:39> GCS Kunkle coma scale eye opening: Spontaneous Willa coma scale verbal response: Orientated Kunkle coma scale motor response: Obey commands Kunkle coma scale total score: 15 Course <KATIUSKA Clarke - Last Filed: 12/05/19 02:39> Orders Ordered: Discontinued Medications Acetaminophen (Tylenol) 650 mg PO NOW ONE Stop: 12/04/19 16:07 Last Admin: 12/04/19 16:20 Dose: 650 mg Documented by: AZEEM Cyclobenzaprine HCl (Flexeril) 10 mg PO NOW ONE Stop: 12/04/19 16:07 Last Admin: 12/04/19 16:21 Dose: 10 mg Documented by: AZEEM Lidocaine (Lidoderm) 1 each TOP NOW ONE Stop: 12/04/19 16:07 Last Admin: 12/04/19 16:22 Dose: 1 each Documented by: AZEEM Prednisone (Deltasone) 40 mg PO NOW ONE Stop: 12/04/19 16:07 Last Admin: 12/04/19 16:21 Dose: 40 mg Documented by: AZEEM Vital Signs Vital signs: Vital Signs - 8 hr 12/04/19 12:27 12/04/19 15:03 12/04/19 15:05 Temperature 97.8 F Pulse Rate 82 74 77 Respiratory Rate 18 14 Blood Pressure 133/75 123/73 Pulse Oximetry 100 98 98 12/04/19 15:30 12/04/19 16:00 Temperature Pulse Rate 83 78 Respiratory Rate Blood Pressure 116/65 114/66 Pulse Oximetry 98 99 <Alena Case MD - Last Filed: 12/05/19 18:54> Orders Ordered: Discontinued Medications Acetaminophen (Tylenol) 650 mg PO NOW ONE Stop: 12/04/19 16:07 Last Admin: 12/04/19 16:20 Dose: 650 mg Documented by: AZEEM Cyclobenzaprine HCl (Flexeril) 10 mg PO NOW ONE Stop: 12/04/19 16:07 Last Admin: 12/04/19 16:21 Dose: 10 mg Documented by: AZEEM Lidocaine (Lidoderm) 1 each TOP NOW ONE Stop: 12/04/19 16:07 Last Admin: 12/04/19 16:22 Dose: 1 each Documented by: AZEEM Prednisone (Deltasone) 40 mg PO NOW ONE Stop: 12/04/19 16:07 Last Admin: 12/04/19 16:21 Dose: 40 mg Documented by: AZEEM Vital Signs Vital signs: Vital Signs - 8 hr 12/04/19 12:27 12/04/19 15:03 12/04/19 15:05 Temperature 97.8 F Pulse Rate 82 74 77 Respiratory Rate 18 14 Blood Pressure 133/75 123/73 Pulse Oximetry 100 98 98 12/04/19 15:30 12/04/19 16:00 Temperature Pulse Rate 83 78 Respiratory Rate Blood Pressure 116/65 114/66 Pulse Oximetry 98 99 MDM - Extremity (Nontraumatic) <KATIUSKA Clarke - Last Filed: 12/05/19 02:39> Differential Diagnosis Differential diagnosis: Likely other (Cervical radiculopathy, shoulder pain, carpal tunnel syndrome) Medical Records Attestation: I reviewed the patient's medical records. Lab Data Labs: Urine Dip Bedside Urine Glucose Negative Bedside Urine Bilirubin - Negative Bedside Urine Ketone - Negative Urine Specific [place] 1.015 Bedside Urine Occult Blood - Negative Bedside Urine pH 6.0 Bedside Urine Protein - Negative Bedside Urine Urobilinogen - Negative Bedside Urine Nitrite - Negative Bedside Urine Leukocytes - Negative Esterase MDM Narrative Medical decision making narrative: This is a 54-year-old female who presents to ED with recurring left arm pain in ulna aspect with decrease sensation in little and ring finger with very slightly decreased strength in left upper extremity. Patient reports she was initially evaluated just over 1 year ago same symptoms and was seen by Dr. Spring and received an injection which helped the symptoms. Patient denies constitutional symptoms. Patient is afebrile. There is no recent spine instrumentation. 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 Unable to locate MRI test result in EHR as the patient reported. She reports has an appointment with [facility] orthopedist on 12/20 and in waiting list for sooner evaluation. Patient was medicated with prednisone, Flexeril, and lidocaine patch which improved her symptoms and discharged to home with same medication. Return precautions were discussed with patient and patient verbalized understanding and agreement with the treatment plan. Urine test shows no indication for infection, glucose. <Alena Case MD - Last Filed: 12/05/19 18:54> Lab Data Labs: Urine Dip Bedside Urine Glucose Negative Bedside Urine Bilirubin - Negative Bedside Urine Ketone - Negative Urine Specific [place] 1.015 Bedside Urine Occult Blood - Negative Bedside Urine pH 6.0 Bedside Urine Protein - Negative Bedside Urine Urobilinogen - Negative Bedside Urine Nitrite - Negative Bedside Urine Leukocytes - Negative Esterase Discharge Plan Departure Patient Disposition: Home Clinical Impression: Cervical radiculopathy Discharge Date/Time: 12/04/19 17:49 Instructions: DI for Cervical Radiculopathy Activity Restrictions/Additional Instructions: You have been diagnosed with [cervical radiculopathy.]. What to do: *Take your medications as directed. Please use Flexeril as muscle relaxant as needed. This medication may cause drowsiness so please take precautions. You can continue to use Aleve for pain. Tylenol 650-1000 mg as needed for pain up to 3 to 4 times a day. Prednisone 40 mg for next 4 more days. This medication has been transmitted to [facility]. *Follow up with your primary care provider in 2-3 days, call for an appointment. Please follow-up with orthopedist as planned. Let them know you were seen in the ED and that we asked you to be seen in follow up. *Return to ED if you have any new, worsening, or concerning symptoms, such as [chest pain, breathing difficulty, unable to tolerate fluids, worsening pain/numbness/weakness, fever or any acute concerns]. Prescriptions: New prednisone 20 mg tablet 40 mg PO DAILY 4 Days Qty: 8 RF: 0 cyclobenzaprine 10 mg tablet 10 mg PO BID PRN (Reason: muscle spasm) Qty: 10 RF: 0 lidocaine 5 % adhesive patch,medicated 1 patch TOP DAILY Qty: 30 RF: 0 No Action cholecalciferol (vitamin D3) [Vitamin D3] 1,000 unit Tablet 1,000 unit PO QDAY Qty: 0 RF: 0 multivitamin Tablet 1 tab PO DAILY Qty: 0 RF: 0 Tylenol Extra Strength 2 tabs PO PRN Qty: 0 RF: 0 fluticasone propionate [Flonase Allergy Relief] 9.9 ML spray,suspension 1 spray Intranasal QDAY Qty: 1 RF: 0 turmeric root extract 1 tab PO DAILY Qty: 0 RF: 0 clonidine HCl 0.1 MG tablet 0.2 mg PO HS Qty: 60 RF: 0 trazodone 50 MG tablet 0 mg PO HSP PRNQty: 60 RF: 2 gabapentin 100 mg capsule 200 mg PO TID Qty: 180 RF: 1 methocarbamol 500 mg tablet 500 mg PO QID PRN (Reason: muscle spasm) Qty: 10 RF: 0 methylphenidate HCl [Concerta] 54 mg Tablet Extended Release 24hr 54 mg PO QAM RF: 0 duloxetine 30 MG capsule,delayed release(DR/EC) 90 mg PO QDAY RF: 0 propranolol 20 mg Tablet 20 mg PO BID RF: 0 naproxen 500 MG tablet 500 mg PO BID PRN (Reason: Inflammation) RF: 0 armani qqci-ykahmvap-ksehrcrnr ac [[place] [employer]] 1,000 mg Capsule 1 cap PO TID RF: 0 conjugated estrogens [Premarin] 0.625 MG/GM cream 1 applic Vaginal SEE INSTRUCTIONS RF: 0 cyclobenzaprine 5 mg tablet 5 mg PO TID PRN (Reason: muscle spasm) Qty: 10 RF: 0 Referrals: Domenica Tovar ARNP [Primary Care Provider] - Stand Alone Forms: Work Release Note <Alena Case MD - Last Filed: 12/05/19 18:54> Cosign ED Attending Cosignature Attestation: I was immediately available in the department for consultation throughout this patient's visit. I agree with documentation as above. Alena Case MD
[2019-12-04 17:49] VITALS: BP 124/71; PULSE 75; RESP 16; TEMP 36.7; O2SAT 98
== END 2019-12-04 17:49 | disposition home or self-care (01) ==
PROVIDERS: Emergency Provider Nurse Practitioner Family; PCP Internal Medicine
DX: M54.12 Radiculopathy, cervical region (principal); M25.522 Pain in left elbow
CPT/HCPCS: 81003; 99283

== ENCOUNTER → 2019-12-21 15:16 | Outpatient (CLI) | payer OTHER, SELFPAY ==
[2019-12-21 16:22] LABS: Add Manual Diff / Slide Review NO; Basophils Absolute Auto 100 /uL (0-100); Basophils Percent Auto 0.8 % (0-2); Eosinophils Absolute Auto 200 /uL (0-450); Eosinophils Percent Auto 3.3 % (2-4); Hematocrit 45.5 % (36-46); Hemoglobin 15.4 g/dL (12.0-16.0); Lymphocytes Absolute Auto 2000 /uL (1100-4500); Lymphocytes Percent Auto 31.5 % (25-40); Mean Corpuscular HGB Conc 33.9 % (30-36); Mean Corpuscular Hemoglobin 29.8 PG (26-34); Mean Corpuscular Volume 87.9 fL (80-100); Monocytes Absolute Auto 400 /uL (0-900); Monocytes Percent Auto 6.9 % (3-14); Neutrophils Absolute Auto 3700 /uL (1500-7000); Neutrophils Percent Auto 57.5 % (50-75); Platelet Count 229 X10^3/uL (150-400); Red Blood Cell Count 5.17 X10^6/uL (4.0-5.2); Red Cell Distribution Width 13.3 % (11.6-14.8); White Blood Cell Count 6.4 X10^3/uL (4.5-11.0)
== END ==
PROVIDERS: PCP Internal Medicine; Referring Provider Orthopaedic Surgery; Visit Provider Orthopaedic Surgery
DX: Z01.812 Encounter for preprocedural laboratory examination (principal)
CPT/HCPCS: 36415; 85025

== ENCOUNTER → 2020-01-01 08:18 | Outpatient (CLI) | payer OTHER, SELFPAY ==
[2020-01-02 12:45] LABS: COVID19 Sendout Not Detected (Not Detect)
== END ==
PROVIDERS: PCP Internal Medicine; Visit Provider Physician Assistant
DX: Z11.59 Encounter for screening for other viral diseases (principal)
CPT/HCPCS: 87635

== ENCOUNTER 2020-01-04 06:14 | Day surgery (SDC) | payer OTHER, SELFPAY ==
[2019-12-28 11:59] VITALS: BMI 36.3
[2020-01-04] VITALS (22 sets, daily range): BP systolic 100–162; BP diastolic 46–97; PULSE 70–99; RESP 12–21; TEMP 35.8–37.2; O2SAT 89–97; BMI 36.3
--- NOTE | 2020-01-04 | DI.RAD.S_ITS ---
PROCEDURE: XR CERVICAL SPINE 2V OR 3V INDICATIONS: ANTERIOR CERVICAL DISCECTOMY W/ FUSION AND BONE GRAFT TECHNIQUE: Fluoroscopic images were obtained during an operative procedure and submitted for interpretation following the completion of the procedure. A COMPARISON: [facility] Dario Hernandez, RF, CERVICAL SPINE INTERLAMINAR, 09/28/2018, 8:20. [facility], 12/19/2019, 13:10. FINDINGS: These fluoroscopic images were performed for intraoperative localization. On these images, anteriorly placed disc fixation devices are seen at C5-C6 and C6-C7. Please correlate with intraoperative findings. IMPRESSION: Normal intraoperative examination. Dictated by: Jayden Genao M.D. on 01/04/2020 at 8:35 Approved by: Jayden Genao M.D. on 01/04/2020 at 8:37
[2020-01-04] MEDS: SCOPOLAMINE 1 PATCH TOP (06:50)
[2020-01-04] MEDS: LACTATED RINGERS 1,000 ML 42 ML IV (06:52)
[2020-01-04] MEDS: ACETAMINOPHEN 325 MG TABLET 975 MG PO (06:52)
--- NOTE | 2020-01-04 07:28 | PM.PREOP ---
Pre-operative Note COVID-19 COVID-19 status: Negative Result date/Date tested (Pos, Neg/Pending): 01/01/20 Interval Note History & Physical reviewed/Exam performed by Physician: Yes Changes to H&P: No
--- NOTE | 2020-01-04 07:30 | P.OP_ITS ---
Operative Date/Time/Diagnoses Date of procedure: 01/04/20 Time of procedure: 09:18 Pre-op diagnosis: Cervical disc herniation with radiculopathy Post-op diagnosis: same Procedure & Clinicians Procedure: C5-6 and C6-7 ACDF with cages Iliac crest bone graft aspirate Use of microscope Same procedure as scheduled: Yes Indications: [age] year old female with intractable pain from cervical disc herniations. They had failed conservative management and requested operative intervention. Risks and benefits of surgery were discussed and appropriate consents were obtained. Surgeon: Sherman Boothe Obstetrics Nurse Practitioner: Ledy Heredia Anesthesia Type: General Operative Notes Findings: None Closure Type: primary Specimen(s): none sent Prosthetic devices, grafts, tissues, transplants, or devices: Rossana VANESSA-C Estimated Blood Loss (mL): 5 Procedure in detail: Patient was brought to the operating room and intubated on the table. A time-out was performed. Preoperative antibiotics were given. The neck was prepped and draped in the standard sterile fashion. Using a skin fold, we made a 3 cm oblique incision on the left side. We used Bovie to go through the platysma and then did a standard anterolateral blunt dissection down to the precervical fascia. Fascia was nicked and elevated up. A marker was placed and x-ray was taken for localization. We then subperiosteally elevated up the longus colli muscles. She had large anterior osteophytes covering over the disc but had not fused the discs themselves. These were removed with the rongeur. Self-retaining retractors were placed. Allen pins were placed. We then brought in the microscope. A scalpel used to perform an annulotomy. We then used a combination of pituitaries and curettes and Kerrison to perform a complete anterior diskectomy at C6-7. We used the bur to take down the posterior osteophytes. We took down the PLL and used Kerrison to remove any posterior disc material and osteophytes. At the end we could from the nerve hook cephalad caudally and out the foramen and everything was opened. A small stab incision was made over the left anterior iliac crest. A Jamshidi needle was advanced into the pelvis and 2 mL of bone marrow was aspirated. We then used the trials. We then packed a 14 x 17 x 7 mm VANESSA-C cage with Attrax bone graft and the iliac crest harvest. The cage was placed under fluoroscopic guidance into the C6-7 disc space for the anterior fusion. We then placed our two locking plates. We then moved up to the C5-6 level. Again a complete diskectomy was performed including take down the PLL. The posterior osteophytes and disc material r emoved. We checked everything with a nerve hook. We then trialed and placed another 14 x 17 x 6 mm mm VANESSA-C cage with bone graft for the anterior fusion. The self-retaining retractors and Allen pins were removed and final x-rays taken. The wound was irrigated. There was no bleeding. The carotid was beating nicely. The platysma was closed. The superficial was closed. The skin was closed. A sterile dressing was placed. They were then extubated and brought to recovery room with no complications. Complications: none Post-operative Condition: stable Disposition: PACU Plan for aftercare: Inpatient. Overnight admission.
[2020-01-04] MEDS: CEFAZOLIN 2 GM/100 ML FROZ.PIGGY IV ×3 (07:49→23:57)
--- NOTE | 2020-01-04 08:23 | SUR.OPER ---
Supine, head on gel donut. Arms padded with gel pads, tucked at sides, towel roll under shoulders. Safety belt at thigh. Legs uncrossed.
[2020-01-04] MEDS: SODIUM CHLORIDE 0.9% 1,000 ML, GENTAMICIN 80 MG IRR (08:48)
[2020-01-04] MEDS: BUPIVACAINE 0.25% W/ EPI 30 ML VIAL 60 ML INJ (08:49)
[2020-01-04] MEDS: THROMBIN (RECOMBINANT) 5,000 UNIT VIAL 5000 UNIT TOP (08:49)
[2020-01-04] MEDS: HYDROMORPHONE 2 MG INJ IV ×8 (09:48→10:40)
[2020-01-04] MEDS: OXYCODONE IR 5 MG TABLET PO (10:38)
--- NOTE | 2020-01-04 11:01 | SUR.PHASEI ---
Report called to Angelina.
--- NOTE | 2020-01-04 11:21 | SUR.PHASEI ---
Patient transferred to the floor. VS stable. IV saline locked. Report given to Angelina. Neck and abd dressing CDI. Belongings bag with patient.
[2020-01-04] MEDS: LACTATED RINGERS 1,000 ML 125 ML IV ×2 (11:30→19:04)
[2020-01-04] MEDS: DEXAMETHASONE 4 MG/ML VIAL IV ×3 (12:05→23:56)
[2020-01-04] MEDS: LIDOCAINE PATCH 1 EACH ADH..PATCH TOP (12:07)
[2020-01-04] MEDS: hydrOXYzine pamoate 25 MG CAPSULE PO (12:07)
--- NOTE | 2020-01-04 12:37 | PC.NURSE ---
Addendum entered by Angelina Alva R.N. 01/04/20 14:48: Pt ate lunch without difficulty. OOB with 1PA, gait belt and walker to BR to void X1, no measuring hat at that time, one is now placed. BP after ambulation was 108/59, HR 93. Pt states she normally has low BP, felt slightly dizzy with first ambulation/standing. Settled back to bed. Pain 6/10 to back of neck, ice pack on/off. Now working with PT. Original Note: Day Shift- Report rec'd from ROMERO Richardson in PACU at 1058. pt arrived to unit room 218 at 1115 via bed. Pt's Jeferson at bedside, aware to wear mask at all times while visiting. oriented to call light and bed function. pt reports 9/10 pain to back of neck, lidocaine patch placed at this site. Soft cervical collar in place. Anterior left side neck dressing of gauze and tegaderm CDI. Pt states has chronic numbness to left middle finger and 3rd finger, nothing new. IVF started per order. pt tolerated sips of water, ice chips, and apple sauce. Pt also requested a Popsicle. Encouraged pt to have small bites of food, chew well, keep soft foods for now. No coughing or choking noted. Pt states voice is slightly deep, soft-spoken, sore throat, will monitor. Call light within reach, bed alarm on, no urge to void at this time.
--- NOTE | 2020-01-04 14:34 | PT.IIE ---
Current Diagnoses Spinal stenosis, cervical region (01/04/20) Radiculopathy, cervical region (01/04/20) Surgery Performed Operation Date: 01/04/20 07:45 Actual Procedures p C56 & C67 anterior cervical discectomy & fusion w/ bone graft - Sherman Boothe MD Surgical History (Last Updated 12/28/19 @ 12:20 by Joslyn Ramos, RN) History of colonoscopy with polypectomy (Acute) History of surgery (Acute) Hx of arthroscopy of left knee (Acute) Status post hysterectomy Medical History (Last Updated 12/28/19 @ 12:39 by Joslyn Ramos RN) Anxiety (Acute) Cervical stenosis of spine (Acute) Depression (Acute) Fatty liver (Acute) Herniated disc (Acute) Hiatal hernia (Acute) Idiopathic neuropathy (Acute) Joint pain (Acute) No blood products (Acute) GERALDINE on CPAP (Acute) Panic attacks (Acute) Pulmonary nodule (Acute) Scarring of lung (Acute) Physical Therapy Inpatient Evaluation/Re-Eval M1 PT/OT-IP Prior Functional Status Start: 01/04/20 16:04 Freq: NEEDED Status: Active Protocol: Document 01/04/20 14:34 AB (Rec: 01/04/20 16:51 AB [id number]) Medical Review Prior Functional Status Medical History Reviewed No Communication able to make needs known Mobility and Gait pt stated that she is independent with all mobilities and ambulation without AD Social History Household Members spouse Living Arrangements House Number of Floors (Floors) Two Floors Number of Stairs To Enter/Railing? 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 has to stop working M2 PT-IP Current Condition Start: 01/04/20 16:04 Freq: NEEDED Status: Active Protocol: Document 01/04/20 14:34 AB (Rec: 01/04/20 16:51 AB [id number]) Physical Therapy Current Condition Current Condition Evaluation Date 01/04/20 Treatment Diagnosis s/p C5-6, C6-7 ACDF; difficulty in walking Onset Date 01/04/20 Precautions Cervical Spine Precautions Soft Collar for Comfort,No Heavy Lifting,Log Roll M3 PT-IP Subjective Start: 01/04/20 16:04 Freq: NEEDED Status: Active Protocol: Document 01/04/20 14:34 AB (Rec: 01/04/20 16:51 AB [id number]) Subjective Physical Therapy Visit Type Type Initial Evaluation Visit Start Time 14:34 Visit Stop Time 15:12 Total Visit Minutes 38 Number of OR MANAGER Visits 0 Physical Therapy Visit Comments Patient Comments pt is agreeable to do PT Therapy Pain Assessment Pain When Pain Assessed At Rest Pain Present Pain Present Pain Reported Location neck Intensity 8 Scale Used Numeric (0 - 10) Pain Management Techniques Re-positioning,Timing of Activity with Medications M4 PT-IP Mobility and Gait Start: 01/04/20 16:04 Freq: NEEDED Status: Active Protocol: Document 01/04/20 14:34 AB (Rec: 01/04/20 16:51 AB [id number]) PT-Bed Mobility Assessment Rolling Type of Rolling Log Rolling Level of Assist Standby Assistance Supine to Sit Supine to Sit Standby Assistance Sit to Supine Sit to Supine Standby Assistance Scooting Scooting to Edge of Bed Standby Assistance PT-Transfer Assessment Sit to and From Stand Sit to and from Stand Contact Guard Assistance,1 Person Assistance,Use of Upper Extremities Equipment Transfer Assistive Device Gait Belt,Front Wheeled Walker Orthotic/Prosthetic Devices or Brace: Yes Transfers Transfer Destination Toilet Transfer Technique ambulated using FWW Transfer Ability Level of Assist Minimal Assistance,1 Person Assistance,Use of Upper Extremities Comments Mobility Comments educated pt with cervical precautions, log roll bed mobility and soft collar management. completed supine to sit log roll SBA. pt was able to sit on EOB SBA. completed sit to stand min A and ambulated to the toilet using FWW min A and cues. pt was able to complete sit to stand from the toilet CGA and ambulated to the towards the sink CGA and completed handwashing CGA. conducted soft collar management and pt was able to luz/doff soft collar. pt ambulated in room using FWW ~ 25 ft and requested to go back to bed. completed sit to supine log roll SBA. positioned pt in bed. call light and table placed within reach. recommending FWW use at this time and pt stated that she will borrow from the soroptomist. informed spouse and will try to call to borrow FWW. Gait Assessment Gait Gait Assistance Required: Contact Guard Assist Distance (Feet) 25 Able to Maintain Weight Bearing Status Yes During Gait Assistive Devices Assistive Device Gait Belt,Front Wheeled Walker Orthotic/Prosthetic Devices or Brace: No Gait Deviations General Gait Pattern Antalgic,Decreased Stride Length,Decreased Feet Clearance,Step-to Gait Factors Limiting Gait Function Factors Limiting Gait Function Decreased Activity Tolerance, Decreased Strength,Limited Range of Motion,Pain,Poor Balance Comments Gait Comments pt with unsteady gait and decrease BLE elevation. pt stated that she has back, hips problems and also has a L knee meniscal tear. PT-Balance Assessment Sitting Balance and Reactions Static Sitting Balance Ability Good Dynamic Sitting Balance Ability Good Standing Balance and Reactions Static Standing Balance Ability Fair Dynamic Standing Balance Ability Fair Device Used FWW M5 PT-IP Objective Assessments Start: 01/04/20 16:04 Freq: NEEDED Status: Active Protocol: Document 01/04/20 14:34 AB (Rec: 01/04/20 16:51 [id number]) Orientation Orientation/Cognition Level of Alertness Alert Orientation Name,Age,Birthday,Month,Date, Year,Day of Week,Place, Situation Language Function Ability No Deficits Noted Safety Awareness Understands Safety Issues Memory Description No Deficits Noted Gross Range of Motion Lower Extremity ROM Assessment Within Functional Limits Strength Lower Extremity Strength Assessment Left Impaired Hip 4-/5 Knee 3+/5 Coordination Assessment Gross Coordination Gross Coordination WNL Sensation Assessment Sensation Gross Sensation Left UE Impaired Sensation Description Numbness Muscle Tone Muscle Tone WNL Yes M6 PT-IP Treatment Start: 01/04/20 16:04 Freq: NEEDED Status: Active Protocol: Document 01/04/20 14:34 AB (Rec: 01/04/20 16:51 [id number]) Physical Therapy Treatment Education Education Provided Precautions,Post-Op Packet, Safety Brace Education [place],Patient M7 PT-IP Assessment and Plan Start: 01/04/20 16:04 Freq: NEEDED Status: Active Protocol: Document 01/04/20 14:34 AB (Rec: 01/04/20 16:51 [id number]) PT Summary Assessment and Plan Potential Rehabilitation Potential Good Status of Condition at Evaluation Stable Summary Impairments Pain,ROM,Strength,Balance, Coordination,Sensation,Bed Mobility,Transfers,Gait, Activity Tolerance Assessment Summary pt s/p ACDF and just had surgery this morning. pt requiring CGA with mobility at this time using FWW. pt will likely progress during hospital stay. Recommending use of FWW and pt stated that she will borrow one. pt plans to go home with spouse to assist her. Goals Bed Mobility Goal Independent Transfer Goal Independent,Front Wheeled Walker Gait Goal Independent,Front Wheel Walker Gait Distance 200 Other Goals up/down 3 steps R rail ascending SBA Days to Meet Goals 3 Frequency of Treatment Frequency Of Treatment Twice a Day Treatment Plan Physical Therapy Treatment Plan Bed Mobility Training,Transfer Training,Gait Training, Therapeutic Exercise,Balance Retraining,Post Op Education, Discharge Planning,Hot or Cold Pack,Neuromuscular Re-ed, Coordination Retraining Recommendations To Nursing Amount of Assist Needed 1 Person Assist Discharge Recommendations PT Discharge Recommendations Home with Assistance Equipment Needed for Home Before FWW Discharge Transportation Needs at Discharge Private Vehicle
[2020-01-04] MEDS: OXYCODONE/ACETAMINOPHEN 5/325 TABLET 2 TAB PO ×2 (14:41→19:04)
[2020-01-04] MEDS: TRAZODONE 50 MG TABLET PO (20:13)
[2020-01-04] MEDS: DOCUSATE 100 MG CAPSULE PO (20:13)
[2020-01-04] MEDS: SENNOSIDES 8.6 MG TABLET 17.2 MG PO (20:13)
[2020-01-04] MEDS: cloNIDine 0.1 MG TABLET 0.2 MG PO (20:14)
--- NOTE | 2020-01-05 00:21 | PC.NURSE ---
Addendum entered by Carlita Macias R.N. 01/05/20 06:18: States pain in neck/throat is 5/10 but declines offer of pain med and/or Cepacol lozenge. Addendum entered by Carlita Macias R.N. 01/05/20 01:32: Complains of incisional pain and upper left back; severity of 8/10. Medicated with Percocet. Original Note: Patient is alert and oriented. Breath sounds CTA; on oxygen at 0.5L/min per NC with sat of 95% as was reportedly dropping sats to upper 80's when asleep. Dressing to neck is CDI; wearing soft collar. Denies pain except with swallowing; declines offer of pain medication. HRR. Denies nausea. BT hypoactive and denies flatus; abdomen is soft. Denies dysuria, frequency or urgency with urination. Able to move self in bed. Reportedly is up to bathroom with walker and 1 assist (not assessed at this time). Reports numbness in 3rd, 4th and 5th fingers of left hand but states it has improved since pre-op. Also reports chronic numbness of bilateral feet. Is wearing bilateral calf SCD's. Fall risk score is moderate and bed alarm is activated.
[2020-01-05] MEDS: OXYCODONE/ACETAMINOPHEN 5/325 TABLET 2 TAB PO ×3 (01:29→11:30)
[2020-01-05 03:55] VITALS: BP 112/70; PULSE 68; RESP 14; TEMP 36.4; O2SAT 93
[2020-01-05] MEDS: DEXAMETHASONE 4 MG/ML VIAL IV (06:12)
[2020-01-05] MEDS: SODIUM CHLORIDE 0.9% FLUSH 10 ML IV ×2 (06:12→08:16)
[2020-01-05] MEDS: PANTOPRAZOLE 20 MG TABLET PO (06:12)
[2020-01-05 08:00] VITALS: BP 134/82; PULSE 73; RESP 16; TEMP 36.3; O2SAT 96
[2020-01-05] MEDS: FLUTICASONE 120 SPRAY/16 GM SPRAY.SUSP NASAL (08:09)
[2020-01-05] MEDS: MULTIVITAMIN 1 TABLET 1 TAB PO (08:11)
[2020-01-05] MEDS: DULOXETINE 30 MG CAPSULE 90 MG PO (08:11)
[2020-01-05] MEDS: CHOLECALCIFEROL (VITAMIN D3) 1,000 UNIT TABLET 1000 UNIT PO (08:11)
[2020-01-05] MEDS: PROPRANOLOL 10 MG TABLET PO (08:11)
[2020-01-05] MEDS: DOCUSATE 100 MG CAPSULE PO (08:11)
--- NOTE | 2020-01-05 09:51 | PM.PNPO.1 ---
Subjective Subjective Date Patient Seen: 01/05/20 Time Patient Seen: 09:51 Interval history: She is doing very well. A little discomfort with swallowing but eating well. Pain at the base of the neck mostly on the left posterior section. Arms feel good. Exam Vital Signs (past 8 hours): - 01/05/20 03:55 01/05/20 08:00 Temperature 97.6 F 97.4 F L Pulse Rate 68 73 Respiratory Rate 14 16 Blood Pressure 112/70 134/82 Pulse Oximetry 93 96 Oxygen Delivery Method Room Air Oxygen Flow Rate 0.5 Const Orientation: alert and oriented x3 Back/Spine/Pelvis Other: CDI. 5/5 motor both upper extremities. Assessment & Plan Post-op Postoperative Procedures: Procedures Operation Date: 01/04/20 07:45 Actual Procedures Side Surgeon p C56 & C67 anterior cervical discectomy & fusion w/ bone graft Sherman Boothe MD She is doing well. Discharged home after PT.
--- NOTE | 2020-01-05 10:07 | PT.IPTN ---
Current Diagnoses Spinal stenosis, cervical region (01/04/20) Radiculopathy, cervical region (01/04/20) Surgery Performed Operation Date: 01/04/20 07:45 Actual Procedures p C56 & C67 anterior cervical discectomy & fusion w/ bone graft - Sherman Boothe MD Physical Therapy Treatment Note M2 PT-IP Current Condition Start: 01/04/20 16:04 Freq: NEEDED Status: Active Protocol: Document 01/04/20 14:34 AB (Rec: 01/04/20 16:51 AB [id number]) Physical Therapy Current Condition Current Condition Evaluation Date 01/04/20 Treatment Diagnosis s/p C5-6, C6-7 ACDF; difficulty in walking Onset Date 01/04/20 Precautions Cervical Spine Precautions Soft Collar for Comfort,No Heavy Lifting,Log Roll M3 PT-IP Subjective Start: 01/04/20 16:04 Freq: NEEDED Status: Active Protocol: Document 01/05/20 09:44 KS (Rec: 01/05/20 12:51 KS [id number]) Subjective Physical Therapy Visit Type Type Treatment Note Visit Start Time 09:44 Visit Stop Time 10:07 Total Visit Minutes 23 Number of CARPENTER ASSISTANT INSTALLER Visits 1 Physical Therapy Visit Comments Patient Comments pt is agreeable to do PT M4 PT-IP Mobility and Gait Start: 01/04/20 16:04 Freq: NEEDED Status: Active Protocol: Document 01/05/20 09:44 KS (Rec: 01/05/20 12:51 KS [id number]) PT-Bed Mobility Assessment Rolling Type of Rolling Log Rolling Level of Assist Standby Assistance Supine to Sit Supine to Sit Standby Assistance Sit to Supine Sit to Supine Standby Assistance Scooting Scooting to Edge of Bed Standby Assistance Scooting Up and Down in Bed Standby Assistance PT-Transfer Assessment Sit to and From Stand Sit to and from Stand Standby Assistance,1 Person Assistance,Use of Upper Extremities Equipment Transfer Assistive Device Gait Belt,Front Wheeled Walker Orthotic/Prosthetic Devices or Brace: Yes Transfers Transfer Destination Bed Transfer Technique ambulated using FWW Transfer Ability Level of Assist Standby Assistance,1 Person Assistance,Use of Upper Extremities Comments Mobility Comments Pt in bed upon arrival from therapy. SBA for logroll to L w/ flat HOB and SBA for sidelying<>sit and scooting EOB. Pt SBA for sit<>stand w/ FWW and able to recall all cervical precautions. Pt then ambulated ~200 ft to stairs and ascended/descended 3 steps w/ R rail SBA and ambulated additional ~200 ft back to room. Pt denied fatigue or laightheadedness after ambulation and stair training. Pt then performed logroll back into bed SBA w/o cues. Pt states she feels safe to return home and her will be there to assist if necessary. Gait Assessment Gait Gait Assistance Required: Standby Assistance,1 Person Assist Distance (Feet) 400 Able to Maintain Weight Bearing Status Yes During Gait Assistive Devices Assistive Device Gait Belt,Front Wheeled Walker Orthotic/Prosthetic Devices or Brace: No Gait Deviations General Gait Pattern Decreased Stride Length, Decreased Feet Clearance Factors Limiting Gait Function Factors Limiting Gait Function Decreased Activity Tolerance, Decreased Strength,Limited Range of Motion Comments Gait Comments Pt ambulated ~400 ft total w/ FWW and SBA. Pt has decreased stride lenght and foot clearance d/t decreased activity tolerance and strength. Pt states she will use FWW at home that her is getting her. Stair Climbing Assessment Evaluation Level of Assist On Stairs Standby Assistance,1 Person Assistance Devices Stair Climbing Assistive Devices Right Railing Technique/Endurance Stair Climbing Direction Ascend and Descend Stair Climbing Technique Step to Step Number of Steps Climbed 3 Stair Climbing Set # Repetitions (reps) 1 Comments Stair Climbing Comments Pt ascended/descended 3 steps w/ R rail SBA and step to step pattern min cues for sequencing. Pt states she feels safe to perform steps at home. PT-Balance Assessment Sitting Balance and Reactions Static Sitting Balance Ability Good Dynamic Sitting Balance Ability Good Standing Balance and Reactions Static Standing Balance Ability Good Dynamic Standing Balance Ability Good Device Used FWW M5 PT-IP Objective Assessments Start: 01/04/20 16:04 Freq: NEEDED Status: Active Protocol: Document 01/04/20 14:34 AB (Rec: 01/04/20 16:51 AB [id number]) Orientation Orientation/Cognition Level of Alertness Alert Orientation Name,Age,Birthday,Month,Date, Year,Day of Week,Place, Situation Language Function Ability No Deficits Noted Safety Awareness Understands Safety Issues Memory Description No Deficits Noted Gross Range of Motion Lower Extremity ROM Assessment Within Functional Limits Strength Lower Extremity Strength Assessment Left Impaired Hip 4-/5 Knee 3+/5 Coordination Assessment Gross Coordination Gross Coordination WNL Sensation Assessment Sensation Gross Sensation Left UE Impaired Sensation Description Numbness Muscle Tone Muscle Tone WNL Yes M6 PT-IP Treatment Start: 01/04/20 16:04 Freq: NEEDED Status: Active Protocol: Document 01/05/20 09:44 KS (Rec: 01/05/20 12:51 KS [id number]) Physical Therapy Treatment Education Education Provided Precautions,Post-Op Packet, Safety M7 PT-IP Assessment and Plan Start: 01/04/20 16:04 Freq: NEEDED Status: Active Protocol: Document 01/05/20 09:44 KS (Rec: 01/05/20 12:51 KS [id number]) PT Summary Assessment and Plan Potential Rehabilitation Potential Good Status of Condition at Evaluation Stable Summary Impairments Pain,ROM,Strength,Balance, Coordination,Sensation,Bed Mobility,Transfers,Gait, Activity Tolerance Progress Towards Goals Progressing Toward Goals Assessment Summary Pt is SBA for all bed mobility , transfers, ambulation, and stairs. She was able to recall all precautions and demonstrated good safety awareness and use of FWW. Min cues for sequencing on stairs. Pt states she feels ready ad safe to return home and will have assistance by as needed. Goals Bed Mobility Goal Independent Transfer Goal Independent,Front Wheeled Walker Gait Goal Independent,Front Wheel Walker Gait Distance 200 Other Goals up/down 3 steps R rail ascending SBA Days to Meet Goals 3 Frequency of Treatment Frequency Of Treatment Twice a Day Treatment Plan Physical Therapy Treatment Plan Bed Mobility Training,Transfer Training,Gait Training, Therapeutic Exercise,Balance Retraining,Post Op Education, Discharge Planning,Hot or Cold Pack,Neuromuscular Re-ed, Coordination Retraining Recommendations To Nursing Amount of Assist Needed 1 Person Assist Discharge Recommendations PT Discharge Recommendations Home with Assistance
--- NOTE | 2020-01-05 11:00 | OT.IP.EVAL ---
Current Diagnoses Spinal stenosis, cervical region (01/04/20) Radiculopathy, cervical region (01/04/20) Surgery Performed Operation Date: 01/04/20 07:45 Actual Procedures p C56 & C67 anterior cervical discectomy & fusion w/ bone graft - Sherman Boothe MD Past Medical History (Last Updated 12/28/19 @ 12:39 by Joslyn Ramos, RN) Anxiety (Acute) Cervical stenosis of spine (Acute) Depression (Acute) Fatty liver (Acute) Herniated disc (Acute) Hiatal hernia (Acute) Idiopathic neuropathy (Acute) Joint pain (Acute) No blood products (Acute) GERALDINE on CPAP (Acute) Panic attacks (Acute) Pulmonary nodule (Acute) Scarring of lung (Acute) Surgical History (Last Updated 12/28/19 @ 12:20 by Joslyn Ramos RN) History of colonoscopy with polypectomy (Acute) History of surgery (Acute) Hx of arthroscopy of left knee (Acute) Status post hysterectomy Occupational Therapy Inpatient Evaluation/Re-Eval M1 PT/OT-IP Prior Functional Status Start: 01/04/20 16:04 Freq: NEEDED Status: Active Protocol: Document 01/04/20 14:34 AB (Rec: 01/04/20 16:51 AB [id number]) Medical Review Prior Functional Status Medical History Reviewed No Communication able to make needs known Mobility and Gait pt stated that she is independent with all mobilities and ambulation without AD Social History Household Members spouse Living Arrangements House Number of Floors (Floors) Two Floors Number of Stairs To Enter/Railing? 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 assisted for some heavy housekeeping tasks as needed. Social History Household Members spouse Living Arrangements House Number of Floors (Floors) Two Floors Number of Stairs To Enter/Railing? 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 M2 OT-IP Current Condition Start: 01/05/20 13:01 Freq: Status: Active Protocol: Document 01/05/20 11:00 RM (Rec: 01/05/20 13:23 RM [id number]) Occupational Therapy Current Condition Current Condition Evaluation Date 01/05/20 Treatment Diagnosis cervical stenosis/ radiculopathy/disc herniation s/p ACDF Diagnosis Onset Date 01/04/20 Post Operative Precautions Cervical Spine Precautions Soft Collar for Comfort,No Heavy Lifting,Log Roll M3 OT- IP Subjective and Pain Start: 01/05/20 13:01 Freq: Status: Active Protocol: Document 01/05/20 11:00 RM (Rec: 01/05/20 13:23 RM [id number]) OT- Subjective Occupational Therapy Visit Type Type Initial Evaluation Visit Start Time 11:00 Visit Stop Time 11:50 Total Visit Minutes 50 Occupational Therapy Visit Comments Patient Comments Patient notes pain 6/10 and RN provided pain medications. Patient/Caregiver Goals Return home with her . OT Pain Assessment Pain When Pain Assessed At Rest Pain Present Pain Present Pain Reported Location neck Intensity 6 Scale Used Numeric (0 - 10) Management Techniques Timing of Activity with Medications M4 OT- IP ADL's Start: 01/05/20 13:01 Freq: Status: Active Protocol: Document 01/05/20 11:00 RM (Rec: 01/05/20 13:23 RM [id number]) OT TUU-[id number]-Osdrvvh General Evaluation Self-Feeding Ability Independent OT ADL-Grooming General Evaluation Grooming Ability Independent Comments OT Grooming Comments Education on body mechanics with ADL routines for pain management. OT ADL-Dressing General Eval Upper Body Dressing Ability Independent Comments OT Dressing Comments Provided education on adaptive dressing techniques to decrease pain including donning LUE first for UB dressing. OT ADL-Toileting General Evaluation Toileting Ability Independent M5 OT- IP IADL's Start: 01/05/20 13:01 Freq: Status: Active Protocol: Document 01/05/20 11:00 RM (Rec: 01/05/20 13:23 RM [id number]) OT-Instrumental Activities of Daily Living Deficits IADL Deficits Identified Deficits M6 OT- IP Functional Cognition Start: 01/05/20 13:01 Freq: Status: Active Protocol: Document 01/05/20 11:00 RM (Rec: 01/05/20 13:23 RM [id number]) Cognitive Factors Limiting Selfcare Function Cognitive Ability Level of Alertness Alert Patient Orientation Name,Date,Year,Place,Situation Attention Span Ability Capable of Focused Attention, Capable of Sustained Attention Ability to Follow Commands Able to Follow Multi-Step Commands Memory Description No Deficits Noted Safety Awareness No Deficits Noted Problem Solving Ability No deficits Noted Executive Function Ability No Deficits Noted Abstract Thinking Ability No Deficits Noted Cognitive Comments Cognitive Assessment Comments Deomnstrates good functional problem solving during ADL routine for maintaining precautions. OT- Vision and Hearing OT- Hearing Assessment OT- Hearing Assessment WFL OT- Vision Assessment Visual Acuity Glasses All The Time M7 OT- IP Mobility and Balance Start: 01/05/20 13:01 Freq: Status: Active Protocol: Document 01/05/20 11:00 RM (Rec: 01/05/20 13:23 RM [id number]) OT- Bed Mobility Assessment Rolling Type of Rolling Log Rolling Level of Assistance Independent Supine to Sit Supine to Sit Assist Independent Sit to Supine Sit to Supine Assist Independent Scooting Scooting to Edge of Bed Independent Scooting Up and Down in Bed Independent OT-Transfer Assessment Sit to and From Stand Sit to and from Stand Independent Transfers Transfer Ability Independent Technique Transfer Destination Bed,Chair,Toilet Devices Transfer Assistive Devices Bed Rail,Front Wheeled Walker OT- Gait Assessment Gait Gait Assistance Required: Independent Assistive Devices Assistive Device Front Wheeled Walker Comments Gait Ability Comments Patient demonstrates safe functional mobility with ADL routine in her room including safely accessing bathroom, managing door, and manuevering in close space while maintaining her precautions. M8 OT- IP Objective Assessments Start: 01/05/20 13:01 Freq: Status: Active Protocol: Document 01/05/20 11:00 RM (Rec: 01/05/20 13:23 RM [id number]) OT Gross Range of Motion Upper Extremity Range of Motion Assessment Within Functional Limits ROM Impairments ROM WFLs for basic self-care tasks with use of adaptive strategies to maintain her precautions. OT Strength Upper Extremity Strength Assessment Within Functional Limits Hand Java Application Engineer Strength Hand Dominance Right Comments Strength Comments Strength not formally assessed . Able to complete basic ADLs without difficulty. M9 OT- IP Assessment and Plan Start: 01/05/20 13:01 Freq: Status: Active Protocol: Document 01/05/20 11:00 RM (Rec: 01/05/20 13:23 RM [id number]) OT Summary Assessment and Plan Potential Rehabilitation Potential Excellent Analytic Complexity at Evaluation Moderate Summary Progress Towards Goals Safe For Discharge Assessment Summary Patient able to demonstrate good safety and activity tolerance for basic ADL routine including ambulating in her room, toileting, grooming at sink, and dressing . Able to demo good integration of precautions during ADLs. Frequency of Treatment Frequency Of Treatment Discharge Discharge Recommendations OT Discharge Recommendations Home with Assistance Home Equipment Needs Patient has acquired in prep for discharge : tub/shower seat, FWW, RTS and toileting hygiene aid
--- NOTE | 2020-01-05 11:59 | ST.IPSCREEN ---
Swallow screen following ACDF surgery on 01/04/2020. CHILD PROTECTIVE SERVICES SOCIAL WORKER observed patient consuming thin liquids via straw x 2 without any overt s/sx of aspiration observed. Patient reported intermittent pain while swallowing, which is a common symptom after ACDF surgery. Provided patient with ACDF handout, reviewed handout in detail, answered any questions/concerns, and placed handout on patient's table. Patient left upright in bed, call light within reach, and with all needs met. - Lucille Coulter MS, CF-CHILD PROTECTIVE SERVICES SOCIAL WORKER
--- NOTE | 2020-01-05 14:10 | PC.NURSE ---
Went over dc instructions and meds with patient and spouse. Questions answered. Patient taken via wc to vehicle driven by spouse patient had all belongings.
--- NOTE | 2020-01-05 15:51 | CM.DANOTE ---
Discharge Planning/Care Management DCP: assessment: case received, EMR reviewed and discussed case in Team Rounds. PT noted that pt was doing well. OT would still be seeing pt but expectation was for a d/c today. Payer: [facility]. Surgeon Dr. Boothe. Pt is a 54 geovanni old female who admitted 01/03 for a scheduled spinal cervical surgery and with a plan to d/c home with her spouse for support. A check in now shows that pt was cleared for home by Dr. Boothe as well as the therapy team and left for home early afternoon in company of her . CM Discharge Assessment Start: 01/05/20 15:50 Freq: Status: Active Protocol: Document 01/05/20 15:50 ITV (Rec: 01/05/20 15:51 ITV [id number]) Discharge Planning Assessment Advance Directives? Yes Advance Directives on File No History Provided By Medical Record Prior Living Arrangements House Household Members spouse Discharge Plan Home Review Status In Process Pre-Anesthesia Assessment Start: 12/28/19 11:59 Freq: Status: Complete Protocol: Document 12/28/19 11:59 CAB (Rec: 12/28/19 12:52 CAB [id number]) Pre-Anesthesia Assessment Patient Information Reviewed Via Phone Assessment Assessment Completed With Patient Diagnostic Results CBC Comment Labs @ [facility] 12/21/19 COVID screen 01/01/20 Primary Care Provider Domenica Tovar Seen Specialist in Last 12 Months Yes Specialist Seen Orthopedist,Other Primary Language Barbadian Height 177.8 cm Weight 114.759 kg Body Mass Index (BMI) 36.3 Hearing Ability Normal Visual Assist Glasses Dentition Type Teeth, Natural Present Barriers to Learning None Hx Anesthesia Reactions Yes: PONV w/hysterectomy Hx Family Anesthesia Reaction Yes: All my sisters have PONV Hx Malignant Hyperthermia No Hx Blood Transfusions No Anesthesia Review Requested No Alcohol Intake Frequency Other: None due to medications Smoking Status Never smoker Substance Use Type does not use Pain Present Pain Reported Musculoskeletal Symptoms Abnormal Gait,Back Pain, Difficulty Walking,Limited Range of Motion,Muscle Weakness,Neck Pain,Numbness, Radiating Pain into Limb History of Falling (Recent or History of Yes ) Patient is completely paralyzed or No completely immobile Mental Status Oriented to own ability Is patient on oxygen? No Does patient have YOUNG/SOB Yes: Related to current smoke/ air conditions Hx Sleep Apnea Yes CPAP/BIPAP use prescribed and used routinely Will Bring CPAP/BIPAP DOS Yes Currently Taking a Beta Marzena Yes: Propranolol Hx Chest Pain No Hx SOB Yes: Related to current smoke/ air conditions Hx Syncope or Dizziness No Anti-Coagulant Therapy No Has a Topper Packer No Cardiac Testing No Hx Pacemaker/ICD No Pacemaker Rep Required? No Cardiac Clearance Received Not Applicable Diet Type At Home Other dysphagia Yes: Lactose free, vegan, eggs ok Gastrointestinal Symptoms Reflux Bladder Pattern Frequency,Incontinent,Urgency Urinary Catheter Present No Hx Urinary Self Catheterization No Diabetes No Patient No Lactating No Hx Drug Resistant Organism No Presence of External or Internal Medical No Devices Have you had any close contact with No someone diagnosed with COVID-19? Marital Status Lives With spouse Prior Living Arrangements House Number of Floors (Floors) Two Floors Support System Spouse Does the Patient Have Assistance After Yes Surgery Patient Discharge Plan Description Return Home Comment Pt advised one day length of stay per surgeon Feels Safe in Current Environment Yes Been Physically Hurt or Threatened By a No Person in Current Environment Do you have thoughts of harming yourself None or others? Are you currently considering suicide? No Do you have a plan to hurt yourself or No Plan others? Do You Have Any Spiritual Beliefs That Yes: Jehovah Witness - NO May Affect Your HC Choices? BLOOD PRODUCTS Do You Have Any Cultural Practices That No May Affect Your HC Choices? Comment Jehovah Witness Who Can We Speak to About Patient's Care Family, friends Identifying Code for Release of Patient Declines to issue Information Health Care Proxy/Next of Kin Jeferson () Health Care Proxy Emergency Contact Name Jeferson () Emergency Contact Advance Directives? Yes Advance Directives on File No Requested Patient Bring Advanced Yes Directives DOS Power of Real Estate Account Executive Yes Power of Real Estate Account Executive Name Jeferson () Power of Real Estate Account Executive PAC Instructions Bring CPAP/BIPAP,Durable medical equipment,Medications to take/avoid,Nasal antibiotic ,No ETOH/petroleum product on skin DOS,NPO,Sturdy shoes/ comfortable clothes,Do not bring valuables and remove jewelry
== END 2020-01-05 14:12 | disposition home or self-care (01) ==
LOC: OR 06:17 → AC 06:18
PROVIDERS: PCP Internal Medicine; Referring Provider Internal Medicine; Visit Provider Orthopaedic Surgery
PROC: (CPT 22551; principal; 2020-01-04 07:45)
DX: M48.02 Spinal stenosis, cervical region (principal); M54.12 Radiculopathy, cervical region; G47.33 Obstructive sleep apnea (adult) (pediatric); E66.9 Obesity, unspecified; I10 Essential (primary) hypertension; F32.9 Major depressive disorder, single episode, unspecified; K21.9 Gastro-esophageal reflux disease without esophagitis; Z68.36 Body mass index [BMI] 36.0-36.9, adult
CPT/HCPCS: 22551; 22552; 22853 ×2; 20939; 72040; 76000; 94762; 97116; 97161; 97166; 97530; 97535; C1776; J0330; J0690; J1100; J1170; J2250; J2405; J2704

== ENCOUNTER → 2020-08-02 16:08 | Outpatient (CLI) | payer OTHER, SELFPAY ==
[2020-01-04 11:34] VITALS: BMI 36.3
[2020-08-02] MEDS: COVID-19 VACC #1, MRNA(MOD) 100 MCG/0.5 ML VIAL IM (16:22)
== END ==
PROVIDERS: PCP Internal Medicine; Visit Provider Internal Medicine
DX: Z23 Encounter for immunization (principal)
CPT/HCPCS: 0011A; 91301

== ENCOUNTER → 2020-08-30 15:50 | Outpatient (CLI) | payer OTHER, SELFPAY ==
[2020-01-04 11:34] VITALS: BMI 36.3
[2020-08-30] MEDS: COVID-19 VACC #2, MRNA(MOD) 100 MCG/0.5 ML VIAL IM (15:55)
== END ==
PROVIDERS: PCP Internal Medicine; Visit Provider Internal Medicine
DX: Z23 Encounter for immunization (principal)
CPT/HCPCS: 0012A; 91301

== ENCOUNTER 2020-09-20 12:43 | Emergency (ER) | payer OTHER, SELFPAY ==
[2020-01-04 11:34] VITALS: BMI 36.3
[2020-09-20 12:54] VITALS: BP 119/79; PULSE 75; RESP 15; TEMP 36.6; O2SAT 99; BMI 35.9
--- NOTE | 2020-09-20 14:33 | ED.FALL ---
HPI - Fall General Chief Complaint: Fall Stated Complaint: fall at work Time Seen by Provider: 09/20/20 14:05 Source: patient Mode of arrival: Ambulatory History of Present Illness HPI Narrative: 55-year-old female nonsmoker with a history of balance issues and frequent falls, cervical radiculopathy presents with a chief complaint of multiple minor injuries as a consequence of multiple recent falls. She denies any head neck or back pain. She denies any chest pain or shortness of breath. She denies any trouble breathing. She has had no use of blood thinners, alcohol or street drugs. She states 3 days ago she was at work when she stumbled and lost her balance which caused her to fall forward into the wall and tweaked her knee a bit but also bruised her forearm. She returned the following day and was walking and stepped awkwardly, largely as a consequence of persistent numbness and tingling of her left leg. Finally she fell again twisting her left ankle and falling forward onto both knees and both wrists. She has pain with range of motion and improvement with rest. She denies fever or chills. She denies blurred vision, dizziness, or trouble with speech. MD complaint: fall Onset (ago): day(s) Fall from: standing Fall witnessed: no Place fall occurred: work Loss of consciousness: none Prolonged down time: no Symptoms prior to fall: none Context: tripped/slipped Location of injury - extremities: Left: ankle and foot and Bilateral: knee Severity: mild Quality: stabbing Related Data Home Medications Medication Instructions Recorded Confirmed acetaminophen 1,000 mg PO Q6H PRN #0 03/21/12 06/24/20 cholecalciferol (vitamin D3) 1,000 unit PO QDAY #0 03/21/12 06/24/20 [Vitamin D3] multivitamin 1 tab PO DAILY #0 03/21/12 06/24/20 fluticasone propionate [Flonase 1 spray INTRANASAL QDAY #1 bot 01/20/16 06/24/20 Allergy Relief] turmeric root extract 1,000 mg PO DAILY #0 02/24/16 06/24/20 Premarin 1 applic VAGINAL SEE INSTRUCTIONS 11/08/17 06/24/20 Parrish Oil 1 - 2 cap PO DAILY 11/08/17 06/24/20 duloxetine 90 mg PO QDAY 11/08/17 06/24/20 methylphenidate HCl [Concerta] 54 mg PO QAM 11/08/17 06/24/20 naproxen 500 mg PO BID PRN 11/08/17 06/24/20 propranolol 10 mg PO BID 11/08/17 06/24/20 lidocaine 1 patch TOP DAILY PRN 12/28/19 06/24/20 methylphenidate HCl 10 mg PO DAILY PRN 12/28/19 06/24/20 omeprazole 20 mg PO DAILY 12/28/19 06/24/20 trazodone 50 mg PO HSP PRN 12/28/19 06/24/20 Previous Rx's Medication Instructions Recorded clonidine HCl 0.2 mg PO HS #60 tab 08/10/16 docusate sodium [DOK] 100 mg PO BID PRN #20 cap 01/05/20 hydroxyzine pamoate 25 mg PO Q4HR PRN #15 cap 01/05/20 oxycodone-acetaminophen 1 tab PO Q4HR PRN #20 tab 01/05/20 Allergies Allergy/AdvReac Type Severity Reaction Status Date / Time topiramate [From Topamax] Allergy Intermediate Swelling Verified 09/20/20 13:04 of the Eye, Feels like my head is going to burst codeine AdvReac Severe NAUSEA/VOMI Verified 09/20/20 13:04 TING ibuprofen AdvReac Severe EYE Verified 09/20/20 13:04 SWELLING lactose AdvReac Severe Gastrointestinal Verified 09/20/20 13:04 Upset morphine AdvReac Severe NAUSEA/SEVERE Verified 09/20/20 13:04 VOMITING Review of Systems Constitutional Constitutional: Denies chills, Denies fatigue, Denies fever(s), Denies frequent falls, Denies lethargy and Denies weakness Eyes Eyes: Denies change in vision, Denies eye discharge, Denies irritation and Denies loss of vision ENT Ears, Nose, Mouth, and Throat: Denies change in voice, Denies dizziness, Denies neck pain, Denies sore throat and Denies throat swelling Cardiovascular Cardiovascular: Denies chest pain, Denies irregular heart rhythm, Denies lightheadedness, Denies palpitations, Denies dyspnea, Denies dyspnea on exertion and Denies orthopnea Respiratory Respiratory: Denies cough, Denies dyspnea, Denies dyspnea on exertion and Denies wheezing Gastrointestinal Gastrointestinal: Denies abdominal pain, Denies change in bowel habits, Denies diarrhea, Denies nausea and Denies vomiting Musculoskeletal Musculoskeletal: Reports deformity, Reports arthralgias, Reports joint swelling, Denies neck pain and Denies numbness Integumentary/Breasts Skin/Breast: Denies pruritus, Denies erythema, Denies rash and Denies wounds Neurologic Neurologic: Denies behavioral changes, Denies confusion, Denies dizziness, Denies frequent falls, Denies loss of vision, Denies numbness and Denies weakness Psychiatric Psychiatric: Denies anxiety, Denies behavioral changes, Denies confusion, Denies depression, Denies homicidal ideation and Denies suicidal ideation Endocrine Endocrine: Denies fatigue, Denies flushing and Denies palpitations Hematologic/Lymphatic Hematologic/Lymphatic: Denies easy bruising Allergic/Immunologic Allergic/Immunologic: Denies urticaria, Denies throat swelling and Denies wheezing Patient History Medical History (Updated 09/20/20 @ 16:30 by Christiano Yan DO) Anxiety Cervical stenosis of spine Depression Fatty liver Herniated disc Hiatal hernia Idiopathic neuropathy Joint pain No blood products GERALDINE on CPAP Panic attacks Pulmonary nodule Scarring of lung Stye Surgical History (Updated 12/28/19 @ 12:20 by Joslyn Ramos RN) History of colonoscopy with polypectomy History of surgery Hx of arthroscopy of left knee Status post hysterectomy Family History Child Age: 28 Asthma Mental health problem Father Heart disease Hypertension High cholesterol Mental health problem Grandmother Hypertension Mental health problem Mother Age: 78 Stroke Mental health problem Grandfather Hypertension High cholesterol Grandmother Mental health problem Sister Age: 51 Mental health problem Sister Age: 47 Hypertension High cholesterol Mental health problem Social History household members: spouse Smoking Status: Never smoker alcohol intake: never Smoking Status: Never smoker alcohol intake frequency: holidays/special occasions only Substance Use Type: does not use Exam Narrative Exam Narrative: GENERAL: [55] year old patient appears stated age. Well-developed patient, in mild distress. A bit anxious and tearful HEAD: Atraumatic. Normocephalic. EYES: Pupils equal round and reactive. Extraocular motions intact. No scleral icterus. No injection or drainage. ENT: Nose without bleeding, purulent drainage. Throat without erythema, tonsillar hypertrophy or exudate. Airway patent. NECK: Trachea midline. Non tender CARDIOVASCULAR: Regular rate and rhythm without murmurs, gallops, or rubs. RESPIRATORY: Clear to auscultation. Breath sounds equal bilaterally. No wheezes, rales, or rhonchi. GASTROINTESTINAL: Abdomen soft, non-tender, nondistended. EXTREMITIES: Full, painless range of motion of bilateral shoulders and elbows. There is a superficial, mild bruise on the medial aspect of the left upper arm. She has full flexion and extension at bilateral elbows as well as pronation and supination. Both wrists she has bony tenderness over distal radius which is increased with range of motion and mild swelling on the right more than left. This is closed, isolated and neurovascularly intact. Bilateral knees with minimal swelling, joint line tenderness at both knees, no obvious diffusion or ligamentous instability. She does have some swelling and tenderness over the lateral malleolus of the left ankle. Sensation and cap refill are intact BACK: Nontender without deformity or crepitance. No flank tenderness. NEURO: AOx3. SKIN: No rash or erythema of visible areas Initial Vital Signs Initial Vital Signs: Vital Signs Temperature 97.9 F 09/20/20 12:54 Pulse Rate 75 09/20/20 12:54 Respiratory Rate 15 09/20/20 12:54 Blood Pressure 119/79 09/20/20 12:54 Pulse Oximetry 99 09/20/20 12:54 Course Orders Ordered: ED Orders 09/20/20 14:57 XR ankle LT min 3V Stat XR foot LT min 3V Stat XR knee LT 3V Stat XR knee RT 3V Stat XR wrist LT min 3V Stat XR wrist RT min 3V Stat Vital Signs Vital signs: Vital Signs - 8 hr 09/20/20 12:54 09/20/20 15:48 Temperature 97.9 F Pulse Rate 75 70 Respiratory Rate 15 16 Blood Pressure 119/79 97/52 L Pulse Oximetry 99 96 MDM - Fall Imaging Data Extremity x-ray #1: Radiologist's Impression: [address] [id number] ReportSigned Patient: Renee Mahajan LMR#: [id number]: 1965Acct:[id number]/Sex: 55 / FDate of Service: 09/20/20Loc: EDAccession Number: [id number] Procedure: XR ankle LT min 3V Ordering Provider: Christiano Yan D.O. PROCEDURE: XR ANKLE LT MIN 3V INDICATIONS: fall at work, bony pain over malleolus TECHNIQUE: 3 views of the ankle were acquired. COMPARISON: None. FINDINGS: Bones: No acute ankle fractures or dislocations. Ankle mortise is normally aligned. Well corticated fragments are noted adjacent to tip of medial malleolus suggestive of old healed injury. Well-defined plantar calcaneal enthesophyte is seen. No suspicious bony lesions. Soft tissues: No tibiotalar joint effusion. Achilles tendon appears normal. IMPRESSION: No acute ankle fracture or dislocation. Suggestion of old injury involving tip of medial malleolus. Plantar calcaneal enthesophyte. Dictated by: Jose L Weeks M.D. on 09/20/2020 at 15:51 Approved by: Jose L Weeks M.D. on 09/20/2020 at 15:[address] [id number] ReportSigned Patient: Renee Mahajan LMR#: [id number]: 1965Acct:[id number]/Sex: 55 / FDate of Service: 09/20/20Lo: EDAccession Number: [id number] Procedure: XR foot LT min 3V Ordering Provider: Christiano Yan D.O. PROCEDURE: XR FOOT LT MIN 3V INDICATIONS: fall at work, bony pain TECHNIQUE: 3 views of the foot were acquired. COMPARISON: None. FINDINGS: Bones: No fractures or dislocations. Small plantar calcaneal spur. No suspicious bony lesions. Mild scattered degenerative changes. Soft tissues: No tibiotalar joint effusion. Achilles tendon appears normal. IMPRESSION: 1. No visible fracture. 2. Mild degenerative changes. Dictated by: Jess Onofre M.D. on 09/20/2020 at 15:58 Approved by: Jess Onofre M.D. on 09/20/2020 at 15:59 Extremity x-ray #2: Radiologist's Impression: Renee Mahajan L 55 F [address] [id number] ReportSigned Patient: Renee Mahajan LMR#: [id number]: 1965Acct:[id number]/Sex: 55 / FDate of Service: 09/20/20Loc: EDAccession Number: [id number] Procedure: XR wrist RT min 3V Ordering Provider: Christiano Yan D.O. PROCEDURE: XR WRIST RT MIN 3V INDICATIONS: fall at work, bony pain TECHNIQUE: 4 views of the wrist were acquired. COMPARISON: None. FINDINGS: Bones: No fractures or dislocations. There is mild to moderate degeneration at the 1st carpometacarpal joint. No suspicious bony lesions. Scaphoid view: The scaphoid appears intact. Soft tissues: No suspicious soft tissue calcifications. IMPRESSION: 1. No fracture or dislocation. Dictated by: Corey Delgado M.D. on 09/20/2020 at 16:19 Approved by: Corey Delgado M.D. on 09/20/2020 at 16:[address] [id number] ReportSigned Patient: Renee Mahajan LMR#: [id number]: 1965Acct:[id number]/Sex: 55 / FDate of Service: 09/20/20Loc: EDAccession Number: [id number] Procedure: XR wrist LT min 3V Ordering Provider: Christiano Yan D.O. PROCEDURE: XR WRIST LT MIN 3V INDICATIONS: fall at work, bony pain TECHNIQUE: 4 views of the wrist were acquired. COMPARISON: None. FINDINGS: Bones: No fractures or dislocations. There is mild degeneration at the 1st carpometacarpal joint. No suspicious bony lesions. Scaphoid view: The scaphoid appears intact. Soft tissues: No suspicious soft tissue calcifications. IMPRESSION: 1. No fracture or dislocation. Dictated by: Corey Delgado M.D. on 09/20/2020 at 16:20 Approved by: Corey Delgado M.D. on 09/20/2020 at 16:21 Extremity x-ray #3: Radiologist's Impression: [address] [id number] ReportSigned Patient: Renee Mahajan LMR#: [id number]: 1965Acct:[id number]/Sex: 55 / FDate of Service: 09/20/20Loc: EDAccession Number: [id number] Procedure: XR knee RT 3V Ordering Provider: Christiano Yan D.O. PROCEDURE: XR KNEE RT 3V INDICATIONS: fall at work, bony pain TECHNIQUE: 3 views of the knee were acquired. COMPARISON: None. FINDINGS: Bones: No fractures or dislocations. There is mild osteophytosis. Mild joint space narrowing is present in the lateral patellofemoral compartment. No suspicious bony lesions. Soft tissues: There is a small joint effusion. No suspicious soft tissue calcifications. IMPRESSION: 1. No fracture or dislocation. Dictated by: Corey Delgado M.D. on 09/20/2020 at 15:57 Approved by: Corey Delgado M.D. on 09/20/2020 at 16:17 Chart Viewer Diagnostics DATE TYPE STATUS REF RANGE/AUTHOR Hx Today 14:57 Corey Delgado Today 14:57 Corey Delgado Today 14:57 Corey Delgado Today 14:57 Corey Delgado Today 14:57 Jess Onofre Today 14:57 Jose L Weeks 01/04/20 00:00 Jayden Genao 08/13/18 14:13 Alfredito Garcia 11/08/17 10:42 Jayden Genao 11/08/17 10:34 07/08/17 07:17 07/08/17 07:17 Renee Mahajan 55, F104/24/1964 [facility] ER, Main ED R13 177.8cm 113.398kg BMI: 35.9kg/m? Fall Search Chart No Data to Display Total Incomplete Swelling of the Eye, Feels like my head is going to burst NAUSEA/VOMITING EYE SWELLING Gastrointestinal Upset NAUSEA/SEVERE VOMITING ONSET 08/13/14 08/13/14 08/13/14 08/13/14 08/13/14 01/14/15 11/04/15 11/04/15 08/10/16 10/05/16 03/02/17 06/07/17 06/07/17 Today 15:48 Renee Mahajan 55 F [address] [id number] ReportSigned Patient: Renee Mahajan LMR#: [id number]: 1965Acct:[id number]/Sex: 55 / FDate of Service: 09/20/20Loc: EDAccession Number: [id number] Procedure: XR knee LT 3V Ordering Provider: Christiano Yan D.O. PROCEDURE: XR KNEE LT 3V INDICATIONS: fall at work, bony pain TECHNIQUE: 3 views of the knee were acquired. COMPARISON: None. FINDINGS: Bones: No fractures or dislocations. There is minimal osteophytosis. There is mild lateral shift of the patella with mild narrowing in the lateral patellofemoral compartment. No suspicious bony lesions. Soft tissues: There is a small joint effusion. No suspicious soft tissue calcifications. IMPRESSION: 1. No fracture or dislocation. Dictated by: Corey Delgado M.D. on 09/20/2020 at 16:17 Approved by: Corey Delgado M.D. on 09/20/2020 at 16:19 Discharge Plan Departure Patient Disposition: Home Clinical Impression: Fall Qualifiers: Encounter type: initial encounter Qualified Code(s): W19.XXXA - Unspecified fall, initial encounter Right wrist sprain Qualifiers: Encounter type: initial encounter Qualified Code(s): S63.501A - Unspecified sprain of right wrist, initial encounter Contusion of knee Qualifiers: Encounter type: initial encounter Laterality: unspecified laterality Qualified Code(s): S80.00XA - Contusion of unspecified knee, initial encounter Ankle sprain Qualifiers: Encounter type: initial encounter Involved ligament of ankle: unspecified ligament Laterality: left Qualified Code(s): S93.402A - Sprain of unspecified ligament of left ankle, initial encounter Instructions: How to Prevent Falls Activity Restrictions/Additional Instructions: *You have been diagnosed with [falls without significant orthopedic injury. All x-rays demonstrate no fractures or dislocations.] *What to do: *Please continue to take your regular medications as directed. [ ] New medication prescriptions sent to your pharmacy: [ ] [ ] New medication written as a paper prescription [x ] No new medications given *Please follow up with your primary care provider in 2-3 days, call for an appointment. Let them know you were seen in the Emergency Department and that we ask that you be seen in follow up. We will electronically transmit a record of today's note if your PCP is in our system *If you do not have a primary care provider please contact the [facility] Resource line at [phone]. They will ask some questions about your medical history and help get you set up with a doctor in the community. *Return to Emergency Department if you should have any new, worsening or concerning symptoms, such as [fever greater than 101 F, shaking chills, worsening pain, persistent vomiting or other bothersome symptoms] Prescriptions: No Action cholecalciferol (vitamin D3) [Vitamin D3] 1,000 unit Tablet 1,000 unit PO QDAY Qty: 0 RF: 0 multivitamin Tablet 1 tab PO DAILY Qty: 0 RF: 0 acetaminophen 500 mg Capsule 1,000 mg PO Q6H PRN (Reason: Pain) Qty: 0 RF: 0 fluticasone propionate [Flonase Allergy Relief] 9.9 ML spray,suspension 1 spray Intranasal QDAY Qty: 1 RF: 0 turmeric root extract 500 mg Capsule 1,000 mg PO DAILY Qty: 0 RF: 0 clonidine HCl 0.1 MG tablet 0.2 mg PO HS Qty: 60 RF: 0 methylphenidate HCl [Concerta] 54 mg Tablet Extended Release 24hr 54 mg PO QAM RF: 0 duloxetine 30 MG capsule,delayed release(DR/EC) 90 mg PO QDAY RF: 0 propranolol 20 mg Tablet 10 mg PO BID RF: 0 naproxen 500 MG tablet 500 mg PO BID PRN (Reason: Inflammation) RF: 0 Parrish Oil 1,000 mg Capsule 1 - 2 cap PO DAILY RF: 0 Premarin 0.625 MG/GM cream 1 applic Vaginal SEE INSTRUCTIONS RF: 0 trazodone 50 MG tablet 50 mg PO HSP PRN (Reason: Sleep) RF: 0 lidocaine 5 % adhesive patch,medicated 1 patch TOP DAILY PRN (Reason: Pain) RF: 0 methylphenidate HCl 10 mg Tablet 10 mg PO DAILY PRN (Reason: ADHD) RF: 0 omeprazole 20 mg Capsule,Delayed Release(Dr/Ec) 20 mg PO DAILY RF: 0 docusate sodium [DOK] 100 mg Capsule 100 mg PO BID PRN (Reason: constipation) Qty: 20 RF: 0 hydroxyzine pamoate 25 mg Capsule 25 mg PO Q4HR PRN (Reason: spasms) Qty: 15 RF: 0 oxycodone-acetaminophen 5-325 mg Tablet 1 tab PO Q4HR PRN (Reason: Pain, Moderate (4-6)) Qty: 20 RF: 0 Referrals: Domenica Tovar ARNP [Primary Care Provider] -
--- NOTE | 2020-09-20 14:57 | DI.RAD.S_ITS ---
PROCEDURE: XR KNEE RT 3V INDICATIONS: fall at work, bony pain TECHNIQUE: 3 views of the knee were acquired. COMPARISON: None. FINDINGS: Bones: No fractures or dislocations. There is mild osteophytosis. Mild joint space narrowing is present in the lateral patellofemoral compartment. No suspicious bony lesions. Soft tissues: There is a small joint effusion. No suspicious soft tissue calcifications. IMPRESSION: 1. No fracture or dislocation. Dictated by: Corey Delgado M.D. on 09/20/2020 at 15:57 Approved by: Corey Delgado M.D. on 09/20/2020 at 16:17
--- NOTE | 2020-09-20 14:57 | DI.RAD.S_ITS ---
PROCEDURE: XR ANKLE LT MIN 3V INDICATIONS: fall at work, bony pain over malleolus TECHNIQUE: 3 views of the ankle were acquired. COMPARISON: None. FINDINGS: Bones: No acute ankle fractures or dislocations. Ankle mortise is normally aligned. Well corticated fragments are noted adjacent to tip of medial malleolus suggestive of old healed injury. Well-defined plantar calcaneal enthesophyte is seen. No suspicious bony lesions. Soft tissues: No tibiotalar joint effusion. Achilles tendon appears normal. IMPRESSION: No acute ankle fracture or dislocation. Suggestion of old injury involving tip of medial malleolus. Plantar calcaneal enthesophyte. Dictated by: Jose L Weeks M.D. on 09/20/2020 at 15:51 Approved by: Jose L Weeks M.D. on 09/20/2020 at 15:51
--- NOTE | 2020-09-20 14:57 | DI.RAD.S_ITS ---
PROCEDURE: XR FOOT LT MIN 3V INDICATIONS: fall at work, bony pain TECHNIQUE: 3 views of the foot were acquired. COMPARISON: None. FINDINGS: Bones: No fractures or dislocations. Small plantar calcaneal spur. No suspicious bony lesions. Mild scattered degenerative changes. Soft tissues: No tibiotalar joint effusion. Achilles tendon appears normal. IMPRESSION: 1. No visible fracture. 2. Mild degenerative changes. Dictated by: Jess Onofre M.D. on 09/20/2020 at 15:58 Approved by: Jess Onofre M.D. on 09/20/2020 at 15:59
--- NOTE | 2020-09-20 14:57 | DI.RAD.S_ITS ---
PROCEDURE: XR WRIST LT MIN 3V INDICATIONS: fall at work, bony pain TECHNIQUE: 4 views of the wrist were acquired. COMPARISON: None. FINDINGS: Bones: No fractures or dislocations. There is mild degeneration at the 1st carpometacarpal joint. No suspicious bony lesions. Scaphoid view: The scaphoid appears intact. Soft tissues: No suspicious soft tissue calcifications. IMPRESSION: 1. No fracture or dislocation. Dictated by: Corey Delgado M.D. on 09/20/2020 at 16:20 Approved by: Corey Delgado M.D. on 09/20/2020 at 16:21
--- NOTE | 2020-09-20 14:57 | DI.RAD.S_ITS ---
PROCEDURE: XR WRIST RT MIN 3V INDICATIONS: fall at work, bony pain TECHNIQUE: 4 views of the wrist were acquired. COMPARISON: None. FINDINGS: Bones: No fractures or dislocations. There is mild to moderate degeneration at the 1st carpometacarpal joint. No suspicious bony lesions. Scaphoid view: The scaphoid appears intact. Soft tissues: No suspicious soft tissue calcifications. IMPRESSION: 1. No fracture or dislocation. Dictated by: Corey Delgado M.D. on 09/20/2020 at 16:19 Approved by: Corey Delgado M.D. on 09/20/2020 at 16:20
--- NOTE | 2020-09-20 14:57 | DI.RAD.S_ITS ---
PROCEDURE: XR KNEE LT 3V INDICATIONS: fall at work, bony pain TECHNIQUE: 3 views of the knee were acquired. COMPARISON: None. FINDINGS: Bones: No fractures or dislocations. There is minimal osteophytosis. There is mild lateral shift of the patella with mild narrowing in the lateral patellofemoral compartment. No suspicious bony lesions. Soft tissues: There is a small joint effusion. No suspicious soft tissue calcifications. IMPRESSION: 1. No fracture or dislocation. Dictated by: Corey Delgado M.D. on 09/20/2020 at 16:17 Approved by: Corey Delgado M.D. on 09/20/2020 at 16:19
[2020-09-20 15:48] VITALS: BP 97/52; PULSE 70; RESP 16; O2SAT 96
[2020-09-20 16:38] VITALS: BP 106/64; PULSE 78; RESP 16; O2SAT 98
== END 2020-09-20 16:39 | disposition home or self-care (01) ==
PROVIDERS: Emergency Provider Emergency Medicine; PCP Internal Medicine
DX: S63.501A Unspecified sprain of right wrist, initial encounter (principal); S80.00XA Contusion of unspecified knee, initial encounter; S93.402A Sprain of unspecified ligament of left ankle, initial encounter; W19.XXXA Unspecified fall, initial encounter; Y99.0 Civilian activity done for income or pay
CPT/HCPCS: 73110; 73562; 73610; 73630; 99281; 99283

== ENCOUNTER → 2020-10-03 06:50 | Outpatient (CLI) | payer OTHER, SELFPAY ==
[2020-01-04 11:34] VITALS: BMI 36.3
--- NOTE | 2020-10-03 | DI.MRI.S_ITS ---
PROCEDURE: MR HEAD/BRAIN WO/W CON INDICATIONS: Repeated falls TECHNIQUE: Noncontrast axial T1 spin echo, axial T2 fast spin echo, sagittal and axial FLAIR, coronal T2 fast spin echo, axial gradient echo, axial diffusion and ADC through the brain. After the administration of contrast, axial and coronal 3D VIBE or T1 spin echo with fat saturation through the brain. COMPARISON: None. FINDINGS: Image quality: Excellent. CSF Spaces: Basal cisterns are patent. No extra-axial fluid collections. Ventricles are normal in size and shape. Brain: No midline shift. No intracranial bleeds or masses. No abnormal intracranial enhancement. The brainstem appears normal. Diffusion-weighted images demonstrate no acute ischemic insults. No chronic ischemic insults. Normal intravascular flow voids are present. Skull and face: Calvarial marrow is normal in signal. Orbits appear normal. Sinuses: Sinuses and mastoids appear clear. IMPRESSION: 1. Negative brain MRI. 2. No acute process. No recent infarct. Dictated by: Bella Riley M.D. on 10/03/2020 at 8:55 Approved by: Bella Riley M.D. on 10/03/2020 at 8:56
== END ==
PROVIDERS: PCP Internal Medicine; Referring Provider Internal Medicine; Visit Provider Internal Medicine
DX: R51.9 Headache, unspecified (principal); R29.6 Repeated falls
CPT/HCPCS: 70553; A9579

== ENCOUNTER 2020-10-03 23:11 | Emergency (ER) | payer OTHER, SELFPAY ==
[2020-01-04 11:34] VITALS: BMI 36.3
[2020-10-03 23:20] VITALS: BP 104/66; PULSE 92; RESP 20; TEMP 36.4; O2SAT 98
[2020-10-04] VITALS (7 sets, daily range): BP systolic 94–107; BP diastolic 49–59; PULSE 67–75; RESP 18; O2SAT 91–99
--- NOTE | 2020-10-04 01:39 | ED_ITS ---
HPI - General Adult General Chief complaint: Upper Respiratory Symptoms Stated complaint: having a hard time swallowing Time Seen by Provider: 10/04/20 01:38 Source: patient Mode of arrival: Ambulatory Limitations: no limitations History of Present Illness HPI narrative: 55-year-old woman with a history of cervical spine fusion, prediabetes, neuropathy, ADHD, PTSD with depression and anxiety presents complaining of difficulty with swallowing. She had a brain MRI today as part of another workup and some of the instructions following that said that she should be evaluated if she noted difficulty breathing or swallowing. She reports that she was somewhat dizzy and woozy after the MRI and About 8 hours after the study she did notice some mild difficulty swallowing and felt that she was having trouble breathing because of anterior neck fullness. On further questioning she notes that the swallowing difficulties and anterior neck fullness have been present for quite a while. She notes that she fell a couple of weeks ago and after that had a lump on the right side anterior neck that she feels is pushing back into her throat and causing difficulties with breathing and swallowing. She is post cervical fusion and apparently is having follow-up on that tomorrow. She states that she has not had any fevers, cough, palpitations, abdominal pain constipation, diarrhea, dysuria. Related Data Home Medications Medication Instructions Recorded Confirmed acetaminophen 1,000 mg PO Q6H PRN #0 03/21/12 06/24/20 cholecalciferol (vitamin D3) 1,000 unit PO QDAY #0 03/21/12 06/24/20 [Vitamin D3] multivitamin 1 tab PO DAILY #0 03/21/12 06/24/20 fluticasone propionate [Flonase 1 spray INTRANASAL QDAY #1 bot 01/20/16 06/24/20 Allergy Relief] turmeric root extract 1,000 mg PO DAILY #0 02/24/16 06/24/20 Premarin 1 applic VAGINAL SEE INSTRUCTIONS 11/08/17 06/24/20 [place] Oil 1 - 2 cap PO DAILY 11/08/17 06/24/20 duloxetine 90 mg PO QDAY 11/08/17 06/24/20 methylphenidate HCl [Concerta] 54 mg PO QAM 11/08/17 06/24/20 naproxen 500 mg PO BID PRN 11/08/17 06/24/20 propranolol 10 mg PO BID 11/08/17 06/24/20 lidocaine 1 patch TOP DAILY PRN 12/28/19 06/24/20 methylphenidate HCl 10 mg PO DAILY PRN 12/28/19 06/24/20 omeprazole 20 mg PO DAILY 12/28/19 06/24/20 trazodone 50 mg PO HSP PRN 12/28/19 06/24/20 Previous Rx's Medication Instructions Recorded clonidine HCl 0.2 mg PO HS #60 tab 08/10/16 docusate sodium [DOK] 100 mg PO BID PRN #20 cap 01/05/20 hydroxyzine pamoate 25 mg PO Q4HR PRN #15 cap 01/05/20 oxycodone-acetaminophen 1 tab PO Q4HR PRN #20 tab 01/05/20 Allergies Allergy/AdvReac Type Severity Reaction Status Date / Time topiramate [From Topamax] Allergy Intermediate Swelling Verified 09/20/20 13:04 of the Eye, Feels like my head is going to burst codeine AdvReac Severe NAUSEA/VOMI Verified 09/20/20 13:04 TING ibuprofen AdvReac Severe EYE Verified 09/20/20 13:04 SWELLING lactose AdvReac Severe Gastrointestinal Verified 09/20/20 13:04 Upset morphine AdvReac Severe NAUSEA/SEVERE Verified 09/20/20 13:04 VOMITING Review of Systems Review of Systems Narrative: Remainder of review is unremarkable Patient History Medical History Anxiety Cervical stenosis of spine Depression Fatty liver Herniated disc Hiatal hernia Idiopathic neuropathy Joint pain No blood products GERALDINE on CPAP Panic attacks Pulmonary nodule Scarring of lung Stye Surgical History History of colonoscopy with polypectomy History of surgery Hx of arthroscopy of left knee Status post hysterectomy Family History Child Age: 28 Asthma Mental health problem Father Heart disease Hypertension High cholesterol Mental health problem Grandmother Hypertension Mental health problem Mother Age: 78 Stroke Mental health problem Grandfather Hypertension High cholesterol Grandmother Mental health problem Sister Age: 51 Mental health problem Sister Age: 47 Hypertension High cholesterol Mental health problem Social History household members: spouse Smoking Status: Never smoker alcohol intake: never Smoking Status: Never smoker alcohol intake frequency: holidays/special occasions only Substance Use Type: does not use Exam Narrative Exam Narrative: General: Healthy appearing, in moderate distress complaining but pressure in the anterior portion of her neck. Able to give a complete and coherent history. Well-nourished well-developed HEENT: Moist mucous membranes, normal sclera with reactive pupils, oropharynx is unremarkable Neck: No JVD, supple. She has a anterior midline scar for cervical fusion and some fullness to the right side of that scar that is visible in comparison to the left side but no obvious palpable masses are appreciated in the area Respiratory: Lungs are clear to auscultation, no wheezing no rales no rhonchi. Full and symmetrical air movement Cardiac: Regular rate and rhythm no murmurs no bruits Abdomen: Soft, nontender, good bowel tones, no flank pain Skin: Warm and dry, no rashes Neurologic: Grossly neurologically intact with no obvious asymmetries or abnormalities Extremities: No trauma, well perfused Psych: Cooperative, appropriate insight and affect Initial Vital Signs Initial Vital Signs: Vital Signs Temperature 97.5 F L 10/03/20 23:20 Pulse Rate 92 H 10/03/20 23:20 Respiratory Rate 20 10/03/20 23:20 Blood Pressure 104/66 10/03/20 23:20 Pulse Oximetry 98 10/03/20 23:20 Course Orders Ordered: ED Orders 10/04/20 02:01 CT soft tissue neck w con Stat Discontinued Medications Sodium Chloride (Normal Saline 0.9%) 1,000 mls @ 1,000 mls/hr IV BOLUS ONE Stop: 10/04/20 03:00 Last Admin: 10/04/20 03:12 Dose: 1,000 mls/hr Documented by: DAVIS Vital Signs Vital signs: Vital Signs - 8 hr 10/03/20 23:20 10/04/20 03:13 10/04/20 03:16 Temperature 97.5 F L Pulse Rate 92 H 69 70 Respiratory Rate 20 Blood Pressure 104/66 103/59 L Pulse Oximetry 98 91 99 10/04/20 03:30 Temperature Pulse Rate 75 Respiratory Rate Blood Pressure 107/55 L Pulse Oximetry 99 Medical Decision Making Medical Records Medical records reviewed: Yes I reviewed the patient's medical records. Lab Data Lab results reviewed: Yes I reviewed the patient's lab results. Imaging Data CT scan soft tissue neck: Radiologist's Impression: No neck mass, adenopathy or airway abnormality appreciated Small calcified left middle cranial fossa lesion without significant mass effect or adjacent brain, Farhad Dumont MD [facility] Narrative Medical decision making narrative: 55-year-old woman with a sensation of fullness and difficulty swallowing anterior portion of her throat with no corresponding anatomic abnormalities. No evidence of edema internally or acute allergic reaction. Most likely explanation at this point is globus sensation. Findings are shared with her as well as CT scan results. She is safe for home discharge and may benefit from outpatient follow-up regarding the dysphagia and further workup of esophageal motor abnormalities. Discharge Plan Departure Patient Disposition: Home Clinical Impression: Globus sensation Activity Restrictions/Additional Instructions: Thank you for coming in today The discomfort and sensation in the front part of your throat does not have a corresponding anatomical finding on the CT scan. One possible explanation for this is Globus sensation. According to ?up-to-date? This is a functional esophageal disorder characterized by a sensation of a lump, retained food bolus, or tightness in the throat that is not due to an underlying structural lesion, gastroesophageal reflux disease (GERD), or a histopathology-based esophageal motility disorder. At this time, I think it is safe for you to go home with reassurance that you are not going to choke or . I would suggest that he schedule a follow-up appointment with your primary care physician. You may benefit from further esophageal motility studies to see if the way that muscles work in your throat might be causing some of your symptoms. I wish you the best Prescriptions: No Action cholecalciferol (vitamin D3) [Vitamin D3] 1,000 unit Tablet 1,000 unit PO QDAY Qty: 0 RF: 0 multivitamin Tablet 1 tab PO DAILY Qty: 0 RF: 0 acetaminophen 500 mg Capsule 1,000 mg PO Q6H PRN (Reason: Pain) Qty: 0 RF: 0 fluticasone propionate [Flonase Allergy Relief] 9.9 ML spray,suspension 1 spray Intranasal QDAY Qty: 1 RF: 0 turmeric root extract 500 mg Capsule 1,000 mg PO DAILY Qty: 0 RF: 0 clonidine HCl 0.1 MG tablet 0.2 mg PO HS Qty: 60 RF: 0 methylphenidate HCl [Concerta] 54 mg Tablet Extended Release 24hr 54 mg PO QAM RF: 0 duloxetine 30 MG capsule,delayed release(DR/EC) 90 mg PO QDAY RF: 0 propranolol 20 mg Tablet 10 mg PO BID RF: 0 naproxen 500 MG tablet 500 mg PO BID PRN (Reason: Inflammation) RF: 0 [place] Oil 1,000 mg Capsule 1 - 2 cap PO DAILY RF: 0 Premarin 0.625 MG/GM cream 1 applic Vaginal SEE INSTRUCTIONS RF: 0 trazodone 50 MG tablet 50 mg PO HSP PRN (Reason: Sleep) RF: 0 lidocaine 5 % adhesive patch,medicated 1 patch TOP DAILY PRN (Reason: Pain) RF: 0 methylphenidate HCl 10 mg Tablet 10 mg PO DAILY PRN (Reason: ADHD) RF: 0 omeprazole 20 mg Capsule,Delayed Release(Dr/Ec) 20 mg PO DAILY RF: 0 docusate sodium [DOK] 100 mg Capsule 100 mg PO BID PRN (Reason: constipation) Qty: 20 RF: 0 hydroxyzine pamoate 25 mg Capsule 25 mg PO Q4HR PRN (Reason: spasms) Qty: 15 RF: 0 oxycodone-acetaminophen 5-325 mg Tablet 1 tab PO Q4HR PRN (Reason: Pain, Moderate (4-6)) Qty: 20 RF: 0 Referrals: Domenica Tovar ARNP [Primary Care Provider] -
--- NOTE | 2020-10-04 02:01 | DI.CT.S_ITS ---
PROCEDURE: CT SOFT TISSUE NECK W CON INDICATIONS: anterior cervical swelling/mass with difficulty swallowing TECHNIQUE: After the administration of intravenous contrast, 3.0 mm axial sections acquired from the sella to the aortic arch. Additional oblique axial 3.0 mm sections acquired through the pharynx. 3 mm thick coronal and sagittal reformats were generated. For radiation dose reduction, the following was used: automated exposure control. COMPARISON: None. FINDINGS: Image quality: Excellent. Lymph nodes: No enlarged lymph nodes seen throughout the neck. Vessels: Visualized vasculature appears patent. Neck spaces: The oropharynx, nasopharynx, and pharynx demonstrate no mucosal lesions. The vocal cords, false vocal cords, pyriform sinuses, epiglottis, vallecula, and tongue base all appear normal. Extramucosal spaces appear unremarkable. Glands: The parotid and submandibular glands appear normal. Thyroid gland is normal. Miscellaneous: Small 8 x 4 x 5 millimeter calcified extra-axial lesion noted in the anterolateral margin the left middle cranial fossa may represent small meningioma. The orbits appear normal. Lung apices appear clear. Superficial soft tissues appear normal. Bones: No suspicious bony lesions. Postsurgical changes compatible with C5-C6 and C6-C7 ACDF. Chronic appearing fracture of the tip of the C7 spinous process (chance-concrete bucket hooker's fracture). Visualized sinuses and mastoids appear unremarkable. IMPRESSION: 1. No mucosal-based mass. 2. No lymphadenopathy based on size criteria. 3. No abscess. 4. Small 8 x 4 x 5 millimeter calcified extra-axial lesion in the anterolateral left middle cranial fossa may represent a small meningioma. MRI with and without contrast could be performed for definitive characterization if clinically indicated. Dictated by: Teodora Cuellar MD, PhD on 10/04/2020 at 7:35 Approved by: Teodora Cuellar MD, PhD on 10/04/2020 at 7:39
[2020-10-04] MEDS: SODIUM CHLORIDE 0.9% 1,000 ML 1000 ML IV (03:12)
== END 2020-10-04 04:39 | disposition home or self-care (01) ==
PROVIDERS: Emergency Provider Emergency Medicine; PCP Internal Medicine
DX: F45.8 Other somatoform disorders (principal); R22.1 Localized swelling, mass and lump, neck; R51.9 Headache, unspecified; R29.6 Repeated falls
CPT/HCPCS: 70491; 70553; 96360; 99284; A9579; Q9967

== ENCOUNTER → 2021-01-23 09:34 | Outpatient (CLI) | payer OTHER, SELFPAY ==
[2020-01-04 11:34] VITALS: BMI 36.3
== END ==
PROVIDERS: PCP Internal Medicine; Referring Provider Internal Medicine; Visit Provider Internal Medicine
DX: R29.6 Repeated falls (principal)
CPT/HCPCS: 95886; 95909